=== PATIENT | male | born 1955 | race Caucasian/White ===

== ENCOUNTER 2018-03-27 14:58 | Emergency (ER) | payer OTHER ==
--- OUTSIDE RECORDS SUMMARY | 2018-03-27 15:03 | XMS REPORT | Clinical Summary ---
:1955 Author Organization [facility] Address [address] [place] [address] Care Team Providers Name Role Phone Taylor Tyler MD Primary Care Provider Allergies Active Allergy Reactions Severity Noted Date Comments Morphine Other (See Comments) 11/18/2015 confusion Current Medications Prescription Sig. Disp. Refills Start End Status Date Date calcitriol Take 0.25 capsules 10/20/19 Active (ROCALTROL) 0.5 MCG by mouth daily. 16 capsule pravastatin TAKE ONE TABLET BY 1 03/25/20 Active (PRAVACHOL) 10 MG MOUTH EVERY OTHER 16 tablet DAY AT BEDTIME cetirizine (ZyrTEC) Take 10 mg by Active 10 MG tablet mouth daily. FOLIC ACID/VIT B Take by mouth. Active COMPLEX AND C (DIALYVITE ORAL) VIT A/VIT C/VIT Take by mouth. Active E/ZINC/COPPER (ICAPS AREDS ORAL) allopurinol Take 1 tablet (100 90 tablet 1 09/08/20 Active (ZYLOPRIM) 100 MG mg total) by mouth 17 tablet once daily. famotidine (PEPCID) Take 1 tablet (20 90 tablet 1 09/08/20 Active 20 MG mg total) by mouth 17 tabletIndications: 2 (two) times a Gastroesophageal day. reflux disease without esophagitis gabapentin Take 2 capsules 360 capsule 1 09/08/20 Active (NEURONTIN) 100 mg (200 mg total) by 17 capsule mouth 2 (two) times a day. escitalopram TAKE 1 TABLET BY 90 tablet 1 10/04/19 Active (LEXAPRO) 10 MG MOUTH DAILY 18 tablet sevelamer (RENVELA) Take 800 mg by Active 800 mg tablet mouth daily. 5 tabs with meals 3 tabs with snacks aspirin 325 MG Take 325 mg by Active tablet mouth daily. clonIDINE (CATAPRES) Take 1 tablet (0.1 01/06/20 Active 0.1 MG tablet mg total) by mouth 18 3 (three) times a day as needed for high blood pressure (PRN SBP >170). SBP greater than 170 donepezil (ARICEPT) Take 1 tablet (10 90 tablet 3 01/16/20 Active 10 MG tablet mg total) by mouth 18 nightly. HYDROcodone-acetamin Take 1 tablet by 60 tablet 0 03/05/20 Active ophen (NORCO) 10-325 mouth every 6 18 018 mg per (six) hours as tabletIndications: needed for Primary moderate pain for osteoarthritis up to 30 days. Max involving multiple Daily Amount: 4 joints tablets levothyroxine TAKE 1 TABLET (75 90 tablet 1 03/09/20 Active (SYNTHROID, LEVOXYL) MCG TOTAL) BY 18 75 mcg MOUTH ONCE DAILY. tabletIndications: Acquired hypothyroidism NIFEdipine XL Take 1 tablet (90 30 tablet 0 03/22/20 Active (PROCARDIA XL) 90 MG mg total) by mouth 18 018 24 hr tablet daily for 30 days. RENVELA 800 mg Take 8 tablets by 08/31/20 Discontinued tablet mouth 2 (two) 15 017 times a day. aspirin 81 mg Chew 81 mg. Discontinued chewable tablet 018 clopidogrel (PLAVIX) Take 75 mg by 0 03/25/20 Discontinued 75 mg tablet mouth once daily. 16 017 VITAMIN D2 50,000 04/21/20 Discontinued unit capsule 16 017 clonIDINE (CATAPRES) nightly as needed 05/30/20 Discontinued 0.1 MG tablet for high blood 16 018 pressure. SBP greater than 170 SENSIPAR 30 mg daily. 07/08/20 Discontinued tablet 16 017 NOVOLOG FLEXPEN 100 INJECT 25 UNITS 4 09/30/20 04/20/2 Discontinued unit/mL insulin pen SUBCUTANEOUSLY 16 018 WITH EVERY MEAL midodrine START TAKING 2 07/24/20 Discontinued (PROAMATINE) 5 MG ONE-HALF TABLET BY 16 017 tablet MOUTH EVERY FOUR HOURS, AT 0900, 1300, 1700. insulin DETEMIR Inject 14 Units 5 pen 0 08/23/20 Discontinued (LEVEMIR FLEXTOUCH) under the skin 2 16 017 100 unit/mL (3 mL) (two) times a day. insulin pen docusate sodium Take 100 mg by Discontinued (COLACE) 100 MG mouth 2 (two) 017 capsule times a day as needed. famotidine (PEPCID) TAKE 1 TABLET BY 90 tablet 1 10/03/19 Discontinued 20 MG MOUTH TWICE A DAY 17 017 tabletIndications: Gastroesophageal reflux disease without esophagitis gabapentin TAKE 2 CAPSULES BY 360 capsule 1 10/06/19 Discontinued (NEURONTIN) 100 mg MOUTH TWICE A DAY 17 017 capsule escitalopram TAKE 1 TABLET BY 90 tablet 1 10/17/19 Discontinued (LEXAPRO) 10 MG MOUTH DAILY 17 017 tablet allopurinol TAKE 1 TABLET BY 90 tablet 1 10/17/19 Discontinued (ZYLOPRIM) 100 MG MOUTH EVERY DAY 17 017 tablet NIFEdipine XL Take 60 mg by Discontinued (PROCARDIA XL) 60 MG mouth. 017 24 hr tablet levothyroxine TAKE 1 TABLET BY 90 tablet 1 01/03/20 Discontinued (SYNTHROID, LEVOXYL) MOUTH DAILY 17 017 75 mcg tabletIndications: Hypothyroidism lactulose TAKE 60 ML BY 5 01/14/20 Discontinued (CHRONULAC) 10 MOUTH TWICE A DAY 17 018 gram/15 mL solution NEEDED FOR CONSTIPATION HYDROcodone-acetamin Take 1 tablet by 60 tablet 0 02/28/20 ophen (NORCO) 10-325 mouth every 6 17 017 mg per (six) hours as tabletIndications: needed for Primary moderate pain for osteoarthritis up to 30 days. Max involving multiple Daily Amount: 4 joints tablets famotidine (PEPCID) TAKE 1 TABLET BY 90 tablet 1 03/29/20 Discontinued 20 MG MOUTH TWICE A DAY 17 017 tabletIndications: Gastroesophageal reflux disease without esophagitis gabapentin TAKE 2 CAPSULES BY 360 capsule 1 04/03/20 Discontinued (NEURONTIN) 100 mg MOUTH TWICE A DAY 17 017 capsule insulin degludec Inject 83 Units Discontinued (TRESIBA FLEXTOUCH under the skin 2 018 U-100) 100 unit/mL (two) times a day. (3 mL) insulin pen HYDROcodone-acetamin Take 1 tablet by Discontinued ophen (NORCO) 10-325 mouth every 6 017 mg per tablet (six) hours as needed for moderate pain. escitalopram TAKE 1 TABLET BY 90 tablet 1 04/13/20 Discontinued (LEXAPRO) 10 MG MOUTH DAILY 17 018 tablet TRESIBA FLEXTOUCH INJECT 80 UNITS 3 04/28/20 Discontinued U-200 200 unit/mL (3 SUB-Q TWICE A DAY 17 017 mL) insulin pen HYDROcodone-acetamin Take 1 tablet by 60 tablet 0 06/20/20 ophen (NORCO) 10-325 mouth every 6 17 017 mg per tablet (six) hours as needed for moderate pain for up to 30 days. Max Daily Amount: 4 tablets levothyroxine TAKE 1 TABLET BY 90 tablet 0 07/03/20 Discontinued (SYNTHROID, LEVOXYL) MOUTH DAILY 17 017 75 mcg tabletIndications: Hypothyroidism famotidine (PEPCID) TAKE 1 TABLET BY 90 tablet 0 07/04/20 Discontinued 20 MG MOUTH TWICE A DAY 17 017 tabletIndications: Gastroesophageal reflux disease without esophagitis donepezil (ARICEPT) Take 1 tablet (5 30 tablet 11 07/17/20 Discontinued 5 MG tablet mg total) by mouth 17 017 nightly. amLODIPine (NORVASC) Take 1 tablet (5 30 tablet 0 08/03/20 5 mg tablet mg total) by mouth 17 017 daily for 30 days. sevelamer (RENVELA) Take 5 tablets 450 tablet 0 08/03/20 800 mg tablet (4,000 mg total) 17 017 by mouth 3 (three) times a day with meals for 30 days. famotidine (PEPCID) TAKE 1 TABLET BY 90 tablet 0 08/04/20 Discontinued 20 MG MOUTH TWICE A DAY 17 017 tabletIndications: Gastroesophageal reflux disease without esophagitis famotidine (PEPCID) TAKE 1 TABLET BY 90 tablet 0 09/04/20 Discontinued 20 MG MOUTH TWICE A DAY 17 017 tabletIndications: Gastroesophageal reflux disease without esophagitis donepezil (ARICEPT) Take 1 tablet (5 90 tablet 1 09/08/20 Discontinued 5 MG tablet mg total) by mouth 17 018 nightly. levothyroxine Take 1 tablet (75 90 tablet 1 09/08/20 Discontinued (SYNTHROID, LEVOXYL) mcg total) by 17 018 75 mcg mouth once daily. tabletIndications: Acquired hypothyroidism famotidine (PEPCID) TAKE 1 TABLET BY 90 tablet 0 10/04/19 Discontinued 20 MG MOUTH TWICE A DAY 18 018 tabletIndications: Gastroesophageal reflux disease without esophagitis famotidine (PEPCID) TAKE 1 TABLET BY 90 tablet 0 11/06/19 Discontinued 20 MG MOUTH TWICE A DAY 18 018 tabletIndications: Gastroesophageal reflux disease without esophagitis allopurinol TAKE 1 TABLET BY 90 tablet 0 12/05/19 Discontinued (ZYLOPRIM) 100 MG MOUTH EVERY DAY 018 tablet HYDROcodone-acetamin Take 1 tablet by 60 tablet 0 12/15/19 Discontinued ophen (NORCO) 10-325 mouth every 6 18 018 mg per (six) hours as tabletIndications: needed for Closed nondisplaced moderate pain for fracture of proximal up to 30 days. Max phalanx of right Daily Amount: 4 little finger, tablets initial encounter insulin ASPART As Prior 4 01/06/20 Discontinued (NovoLOG Flexpen 18 018 U-100 Insulin) 100 unit/mL insulin pen DULoxetine Take 1 capsule (30 30 capsule 11 01/16/20 Discontinued (CYMBALTA) 30 MG mg total) by mouth 18 018 capsule daily. predniSONE Take 1 tablet (20 10 tablet 0 03/05/20 (DELTASONE) 20 mg mg total) by mouth 18 018 tabletIndications: 2 (two) times a Primary day for 5 days. osteoarthritis involving multiple joints allopurinol TAKE 1 TABLET BY 90 tablet 0 03/09/20 Discontinued (ZYLOPRIM) 100 MG MOUTH EVERY DAY 18 018 tablet Hospital, Clinic, or Other Ordered Dose Route Frequency Start Date End Date Status Facility Administered Medication triamcinolone acetonide 40 mg IM once 03/05/2018 03/05/2018 Ended (KENALOG-40) injection 40 mgIndications: Primary osteoarthritis involving multiple joints Active Problems Problem Noted Date Hyperkalemia 03/20/2018 CAD (coronary artery disease), [place] coronary artery 01/04/2018 ESRD (end stage renal disease) on dialysis 09/14/2017 Generalized abdominal pain 07/25/2017 Peritoneal dialysis-associated peritonitis, initial encounter 07/24/2017 Overview: Added automatically from request for surgery [id number] Recurrent falls 05/11/2017 Myoclonus 11/11/2016 Orthostatic hypotension- Rx midodrine 09/23/2016 Mild cognitive impairment 09/23/2016 Cervical myelopathy 09/23/2016 Neuropathy 04/26/2016 Anxiety 04/22/2016 Benign hypertensive heart disease without congestive heart failure 04/22/2016 Cerebrovascular accident 04/22/2016 Chronic uremia 04/22/2016 Gastroesophageal reflux disease 04/22/2016 Gout 04/22/2016 Hip pain 04/22/2016 Hypothyroidism 04/22/2016 Osteoarthritis- uses one hydrocodone/ APAP daily, managed by PCP, visits 04/22 q3 mo Benign neoplasm of adrenal gland 01/15/2016 Corticosteroids adverse reaction 01/15/2016 Diabetes mellitus 01/15/2016 Disease of pericardium 01/15/2016 Goiter 01/15/2016 Malignant melanoma of upper extremity 09/02/2015 Encounters Date Type Specialty Care Team Description 03/27/2018 Documentation Transplant Israel, MRB packet 03/29/18 Sharon (MRB packet 03/29/18 scanned in media. ) 03/26/2018 Documentation Transplant Jannet Christian, mrb packet RN 03/22/2018 Documentation Transplant Marcial, Cardiology Clearance Nathalia - Heart Cath (Scanned Cardiology Clearance letter from Dr. Clayton dated 03/20/2018 related to heart cath performed with pt's home cuff matcher(Dr. Curiel) . Notified nurse coordinator & clinical mri assistant .) 03/20/2018 Patient Outreach Quality Nhi Tatum RN 03/19/2018 Emergency General Internal Elvira, Hyperkalemia (Primary Dx); - Medicine Bailey Hypertension, unspecified type 03/21/2018 DO Raquel Hernandez Shahid Q., MD 03/19/2018 Documentation Transplant Marcial, Kidney Transplant Nathalia Evaluation Update (Called pt's home, spoke with spouse, to give update of kidney txp eval presentation. Advised we are pending cardiology clearance from Dr. Clayton's office. Spk shimon Wise who will have doctor review results of heart cath performed w Dr. Curiel (cuff matcher) and send letter of recommendation. Jannet nurse coordinator says if info rcvd by maria elena is clear, pt will be presented on March 22 if not rcvd the plan is to have presented the following Mar 29. Spouse is ok wih the plan. ) 03/16/2018 Documentation Transplant Marcial, Kidney Eval (Reviewed Nathalia chart, heart cath recommended by Dr. Clayton. Procedure performed 01/04/[address] Celestino Curiel. Called Dr. Clayton's office spoke with Billie who will follow up and send letter with recommendation) 03/16/2018 Documentation Transplant Marcial, Kidney Transplant Nathalia Evaluation Status Update (Rcvd call from Dr. Byers office (nephrology) inquiring the status of pt kidney evaluation. Explained that per previous note, pt will be presented within next couple of weeks. Nurse coordinator is out today, but will get an update on next bus/day. Per review of chart saw that patient's spouse had also called. Called spouse, explained coordinator was out today but offered to assist. Spouse was concerned that pt had not yet been presented.Told spouse update will given Mon. ) 03/16/2018 Telephone Transplant Misha Tabares, Waitlist Status MA Update 03/13/2018 Telephone Transplant Misha Tabares, Heart Cath Results MA 03/09/2018 Patient Outreach Nhi Savage RN 03/08/2018 Refill Family Medicine Taylor Tyler Acquired MD Vivienne hypothyroidism 03/05/2018 Office Visit Family Taylor Wang Primary osteoarthritis involving multiple joints (Primary Dx); MD Vivienne Closed nondisplaced fracture of proximal phalanx of right little finger, initial encounter 02/07/2018 Telephone Transplant Booker, MRB and travel GEOFF Ham restrictions 01/25/2018 Documentation Transplant Israel, cardio f/u (13:34pm Sharon robins/Billie in Dr. Clayton regarding status of clearance. She will call me back or fax over f/u note or clearance. ) 01/24/2018 Telephone Transplant Aaron, Status Update GEOFF Kevin 01/17/2018 Office Visit Family Medicine Taylor Tyler Neuropathy (Primary Dx); MD Vivienne Acquired hypothyroidism; Unspecified symptoms and signs involving cognitive functions and awareness 01/15/2018 Office Visit Neurology Tomas Hernandez Cervical myelopathy ( Primary Dx); MD Pratik Myoclonus; Idiopathic peripheral neuropathy; Orthostatic hypotension- Rx midodrine; Cerebrovascular accident (CVA), unspecified mechanism 01/04/2018 Hospital Encounter General Internal Moisés, Yolanda adenosine - Medicine Celestino Denise MD sestamibi study 01/05/2018 01/04/2018 Procedure Pass Procedural Cardiology 01/04/2018 Surgery Procedural Cardiology Moisés, Cv selective coronary Celestino Denise MD angiography [[id number] (CPT)] 01/02/2018 Documentation Transplant Israel, Cardio consult Sharon (Cardio consult 12/19/17 scanned in media.); Urology clearance (Urology clearance 12/19/17 scanned in media. ) 12/26/2017 Office Visit Sports Lee Stewart Closed nondisplaced MD Gene fracture of proximal phalanx of right little finger with routine healing, subsequent encounter (Primary Dx) 12/19/2017 Hospital Encounter Radiology Omayra Crystal ESRD (end stage renal MD Caitlin disease) 12/19/2017 Hospital Encounter Transplant Omayra Crystal ESRD (end stage renal [place], disease) 12/16/2017 Lab Lab Omayra Crystal ESRD (end stage renal [place], disease) (Primary Dx) 12/14/2017 Office Visit Sports Lee Stewart Closed nondisplaced MD Gene fracture of proximal phalanx of right little finger, initial encounter (Primary Dx) 12/14/2017 Lab Lab Omayra Crystal ESRD (end stage renal [place], disease) 12/14/2017 Telephone Family Medicine Chelo Rodriguez MA 12/13/2017 Lab Lab Omayra Crystal ESRD (end stage renal [place], disease) 12/11/2017 Documentation Transplant Israel, Nephrology consult Sharon (Nephrology consult 11/28/17 scanned in media. ) 12/03/2017 Refill Family Medicine Taylor Tyler MD 11/28/2017 Documentation Transplant Israel, Nephrology consult Sharon (10:24am Sp w/Stefania in Dr. Stone office requesting H&P. Stefania stated she will have to call pt to come in to see Dr. Stone. Stefania will call me when pt is scheduled. ) 11/27/2017 Documentation Transplant Rodriguez, kidney eval day 2 Terri (emailed and mailed pt his itinerary w/ 3 stool cards and instructions.) 11/24/2017 Documentation Transplant Israel, left msg re: day 2 Sharon appt (14:46pm left msg for pt stating he is scheduled on December 19, 2017 for all his appts & left my direct number to call back and confirm appts. ) 11/10/2017 Documentation Transplant Israel, Kidney eval day 2/ Sharon status (14:33 pm Sp w/pt Stefania, pt avail on / & requesting to schedule after 11/27/17 so she can come w/pt to his appts. Do not schedule on November 272017. Told I will schedule sometime next week & gave my direct number to call re: apps) 11/08/2017 Orders Only Transplant Hewerdine, ESRD (end stage renal Mack, BEAR disease) (Primary Dx) 11/05/2017 Refill Family Medicine Taylor Tyler MD reflux disease without esophagitis 11/02/2017 Telephone Transplant Misha Tabares, Next Step in [place] Transplant Process 10/13/2017 Documentation Transplant Mary Glover, LAW OFFICE ASSISTANT 10/06/2017 Telephone Family Taylor Wang MD 10/04/2017 Refill Family Taylor Wang MD reflux disease without esophagitis 10/03/2017 Refill Family Taylor Wang MD 09/26/2017 Hospital Encounter Radiology Garcia, ESRD (end stage renal Raghu Noonan, disease) 09/26/2017 Hospital Encounter Radiology Radha, ESRD (end stage renal Raghu Noonan, disease) 09/26/2017 Hospital Encounter Transplant Garcia, ESRD (end stage renal fátima Villa) 09/26/2017 Hospital Encounter Transplant Raghu Garcia MD 09/26/2017 Hospital Encounter Transplant Omayra Crystal MD Breaux, Denise 09/14/2017 Hospital Encounter Transplant Omayra Crystal ESRD (end stage renal MD Caitlin disease) 09/14/2017 Hospital Encounter Transplant Asked, No Pcp Raghu Garcia MD 09/14/2017 Hospital Encounter Transplant Asked, No Pcp ESRD (end stage renal disease) (Primary Dx); Omayra Crystal Type 2 diabetes mellitus with chronic kidney disease on chronic dialysis, with long-term current use of insulin; MD Caitlin ESRD (end stage renal disease) on dialysis 09/14/2017 Telephone Transplant Zia, Pre-kidney full eval Nhi 09/14/2017 Documentation Transplant Marcial, Consent Forms Nathalia (Scanned Consent For Kidney Transplant Evaluation, Pre Txp Education & MELLISSA forms on Media. 09-14-2017 ) 09/08/2017 Office Visit Family Medicine Taylor Tyler Type 2 diabetes mellitus with hyperglycemia, with long-term current use of insulin (Primary Dx); MD Vivienne Acquired hypothyroidism; Gastroesophageal reflux disease without esophagitis; Primary osteoarthritis involving multiple joints 09/04/2017 Refill Family Medicine Taylor Tyler MD reflux disease without esophagitis 08/31/2017 Documentation Transplant Beronica Virgen 08/30/2017 Documentation Transplant Beronica Virgen 08/18/2017 Telephone Transplant Robbie, Referral - Kidney Txp Jina Berman (Rereferral) GEOFF 08/15/2017 Telephone Family Medicine Chelo Rodriguez MA 08/07/2017 Telephone Family Medicine Chelo Rodriguez MA 08/07/2017 Refill Quality Taylor Tyler MD 08/04/2017 Refill Family Taylor Wang MD reflux disease without esophagitis 07/30/2017 Anesthesia Event General Surgery Salma Sheth CRNA 07/30/2017 Procedure Pass General Surgery 07/30/2017 Procedure Pass General Surgery 07/30/2017 Surgery General Surgery Opperruby, Removal, Catheter, Jaskaran Denise MD Dialysis, Peritoneal 07/25/2017 Hospital Encounter General Internal Krueger, Generalized abdominal pain (Primary Dx); - Medicine MD Jeremy Peritoneal dialysis-associated peritonitis, initial encounter 08/03/2017 Lulu Cutler MD Joglekar, Samir P., MD 07/17/2017 Office Visit Neurology Tomas Hernandez Mild cognitive impairment ( Primary Dx); MD Pratik Myoclonus; Cervical myelopathy; Neuropathy; Orthostatic hypotension- Rx midodrine; Cerebrovascular accident (CVA), unspecified mechanism 07/05/2017 Orders Only Neurology Gwyn, Memory loss GEOFF Guidry 07/04/2017 Refill Family Medicine Taylor Tyler MD reflux disease without esophagitis 07/02/2017 Refill Family Medicine Taylor Tyler Hypothyroidism MD Vivienne 06/19/2017 Office Visit Family Medicine Taylor Tyler Primary osteoarthritis involving multiple joints (Primary Dx); MD Vivienne Recurrent falls; Bilateral hearing loss, unspecified hearing loss type 05/26/2017 Hospital Encounter Gastroenterology Murray, Constipation, Arvind Ryan MD unspecified constipation type 05/26/2017 Procedure Pass Gastroenterology 05/26/2017 Surgery Gastroenterology Murray, COLONOSCOPY Arvind Ryan MD 05/24/2017 Anesthesia Event Gastroenterology Pretty, Danay, ADMINISTRATIVE ASSISTANT OFFICE MANAGER 05/11/2017 Office Visit Neurology Tomas Hernandez Cervical myelopathy ( Primary Dx); MD Pratik Myoclonus; Neuropathy; Memory loss; Recurrent falls 04/13/2017 Refill Family Taylor Wang MD 04/12/2017 Orders Only Family Medicine Gunjan, Screening for colon GEOFF [place] cancer 04/11/2017 Hospital Encounter Gastroenterology Arvind Gao MD 04/11/2017 Procedure Pass Gastroenterology 04/11/2017 Surgery Gastroenterjalil Gao COLONOSCOPY Arvind Ryan MD 04/10/2017 Anesthesia Event Gastroenterology Pretty, Danay, ADMINISTRATIVE ASSISTANT OFFICE MANAGER 03/30/2017 Refill Family Taylor Wang MD 03/29/2017 Refill Family Medicine Taylor Tyler MD reflux disease without esophagitis after 03/26/2017 Family History Medical History Relation Name Comments Melanoma Daughter Cancer Father W Isha Willard Diabetes Father W Isha Willard Heart disease Father Shimon Willard Heart Valve replacement and CHF Hypertension Father Shimon Willard Alzheimer's disease Mother Bernie Willard Arthritis Mother Bernie Willard Hypertension Mother Bernie Willard Diabetes Sister Melanoma Sister Melanoma Sister Cancer Sister Lourdes Latif Relation Name Status Comments Daughter Father Shimon Willard Mother Bernie Willard Sister Sister Sister Lourdes Latif Social History Tobacco Use Types Packs/Day Years Used Date Former Smoker Cigarettes 0.25 10 Quit: 1994 Smokeless Tobacco: Never Used Alcohol Use Drinks/Week oz/Week Comments No Sex Assigned at Date Recorded Not on file Last Filed Vital Signs Vital Sign Reading Time Taken Blood Pressure 160/71 03/21/2018 2:20 PM CDT Pulse 63 03/21/2018 2:20 PM CDT Temperature 36.7 C (98 F) 03/21/2018 12:13 PM CDT Respiratory Rate 11 03/21/2018 12:13 PM CDT Oxygen Saturation 97% 03/21/2018 2:20 PM CDT Inhaled Oxygen Concentration - - Weight 127 kg (280 lb 11.2 oz) 03/21/2018 6:05 AM CDT Height 182.9 cm (6') 03/05/2018 11:16 AM CDT Body Mass Index 38.07 03/21/2018 6:05 AM CDT Plan of Treatment Date Type Specialty Care Team Description 07/16/2018 Office [place] [address] [facility] [address] [place], [place] [id number] Health Maintenance Due Date Last Done Comments DIABETIC FOOT EXAM 1965 DIABETIC RETINAL EYE EXAM 1965 SHINGRIX VACCINE (#1) 2005 ZOSTER VACCINE 2015 INFLUENZA VACCINE 04/18/2018 COLON CANCER SCREENING 12/17/2027 12/16/2017, 12/14/2017, 12/13/2017 Implants Implanted Type Area Aircraft Systems Repairer Device Expiration Model / Identifier Date Serial / Lot Catheter Dialysis Glidepath [id number] Symmetric Tip - [id number] Implantable N/A: BARD PERIPHERAL [id number] / Implanted: 07/31/2017 (Quantity not on file) Infusion Ports N/A VASCULAR / or Accessories Procedures Procedure Name Priority Date/Time Associated Comments Diagnosis HEMODIALYSIS Routine 03/21/2018 7:14 AM CDT HEMODIALYSIS Routine 03/20/2018 7:58 AM CDT HEPATITIS B SURFACE Routine 03/20/2018 7:30 Results for this ANTIBODY AM CDT procedure are in the results section. HEPATITIS B SURFACE AB, Routine 03/20/2018 7:30 Results for this QUANTITATIVE AM CDT procedure are in the results section. HEPATITIS B SURFACE Routine 03/20/2018 7:30 Results for this ANTIGEN AM CDT procedure are in the results section. ESTIMATED GFR STAT 03/20/2018 4:32 Results for this AM CDT procedure are in the results section. BASIC METABOLIC PANEL STAT 03/20/2018 4:32 Results for this AM CDT procedure are in the results section. TROPONIN Timed 03/20/2018 3:37 Results for this AM CDT procedure are in the results section. POC GLUCOSE Routine 03/20/2018 2:44 Results for this AM CDT procedure are in the results section. ESTIMATED GFR STAT 03/19/2018 11:30 Results for this PM CDT procedure are in the results section. B NATRIURETIC PEPTIDE STAT 03/19/2018 11:30 Results for this PM CDT procedure are in the results section. TROPONIN STAT 03/19/2018 11:30 Results for this PM CDT procedure are in the results section. COMPREHENSIVE METABOLIC STAT 03/19/2018 11:30 Results for this PANEL PM CDT procedure are in the results section. PARTIAL THROMBOPLASTIN STAT 03/19/2018 11:30 Results for this TIME (PTT) PM CDT procedure are in the results section. PROTHROMBIN TIME WITH STAT 03/19/2018 11:30 Results for this INR PM CDT procedure are in the results section. HC COMPLETE BLD COUNT STAT 03/19/2018 11:30 Results for this W/AUTO DIFF PM CDT procedure are in the results section. XR CHEST 1 VW PORTABLE STAT 03/19/2018 11:09 Results for this PM CDT procedure are in the results section. ECG ED PRELIMINARY Routine 03/19/2018 10:41 Results for this INTERPRETATION PM CDT procedure are in the results section. [place] [facility], E/M Routine 03/19/2018 10:41 Results for this 30-74 MINUTES PM CDT procedure are in the results section. ECG 12-LEAD STAT 03/19/2018 10:23 Results for this PM CDT procedure are in the results section. POC GLUCOSE Routine 01/05/2018 12:29 Results for this PM CDT procedure are in the results section. HEPATITIS B SURFACE Routine 01/05/2018 7:20 Results for this ANTIGEN AM CDT procedure are in the results section. ESTIMATED GFR Routine 01/05/2018 4:58 Results for this AM CDT procedure are in the results section. HEMOGLOBIN A1C Routine 01/05/2018 4:58 Results for this AM CDT procedure are in the results section. COMPREHENSIVE METABOLIC Routine 01/05/2018 4:58 Results for this PANEL AM CDT procedure are in the results section. LIPID PANEL Routine 01/05/2018 4:58 Results for this AM CDT procedure are in the results section. HC COMPLETE BLD COUNT Routine 01/05/2018 4:58 Results for this W/AUTO DIFF AM CDT procedure are in the results section. POC GLUCOSE Routine 01/04/2018 9:15 Results for this PM CDT procedure are in the results section. HEMODIALYSIS Routine 01/04/2018 6:48 PM CDT POC GLUCOSE Routine 01/04/2018 5:33 Results for this PM CDT procedure are in the results section. CV SELECTIVE CORONARY Routine 01/04/2018 3:44 Abnormal adenosine Results for this ANGIOGRAPHY PM CDT sestamibi study procedure are in the results section. ECG 12-LEAD Routine 01/04/2018 3:20 Results for this PM CDT procedure are in the results section. ESTIMATED GFR STAT 01/04/2018 1:18 Results for this PM CDT procedure are in the results section. PARTIAL THROMBOPLASTIN STAT 01/04/2018 1:18 Results for this TIME (PTT) PM CDT procedure are in the results section. PROTHROMBIN TIME WITH STAT 01/04/2018 1:18 Results for this INR PM CDT procedure are in the results section. BASIC METABOLIC PANEL STAT 01/04/2018 1:18 Results for this PM CDT procedure are in the results section. HC COMPLETE BLD COUNT STAT 01/04/2018 1:18 Results for this W/AUTO DIFF PM CDT procedure are in the results section. XR FINGER 2+ VW RIGHT Routine 12/26/2017 4:21 Closed nondisplaced Results for this PM CDT fracture of procedure are in proximal phalanx of the results right little finger section. with routine healing, subsequent encounter CT ANGIOGRAM ABDOMEN Routine 12/19/2017 8:31 ESRD (end stage Results for this PELVIS W AND OR WO AM CDT renal disease) procedure are in CONTRAST the results section. C1Q CLASS 1 & 2 ANTIBODY Routine 12/19/2017 6:50 Results for this AM CDT procedure are in the results section. HLA AUTOLOGOUS Routine 12/19/2017 6:50 Results for this CROSSMATCH, AHG AM CDT procedure are in the results section. SINGLE ANTIGEN BEADS Routine 12/19/2017 6:50 Results for this AM CDT procedure are in the results section. LOW RESOLUTION FULL Routine 12/19/2017 6:50 Results for this TYPING BY SSO AM CDT procedure are in the results section. ESTIMATED GFR Routine 12/19/2017 6:50 Results for this AM CDT procedure are in the results section. ABORH - TRANSPLANT Routine 12/19/2017 6:50 ESRD (end stage Results for this AM CDT renal disease) procedure are in the results section. PARATHYROID HORMONE Routine 12/19/2017 6:50 ESRD (end stage Results for this AM CDT renal disease) procedure are in the results section. HSV TYPE 1/2 COMBINED Routine 12/19/2017 6:50 ESRD (end stage Results for this AB, IGM AM CDT renal disease) procedure are in the results section. HSV 1 & 2 GLYCOPROTEIN G Routine 12/19/2017 6:50 ESRD (end stage Results for this AB, IGG AM CDT renal disease) procedure are in the results section. HERPES SIMPLEX VIRUS BY Routine 12/19/2017 6:50 ESRD (end stage Results for this PCR AM CDT renal disease) procedure are in the results section. AINSLEY-BANUELOS VIRUS Routine 12/19/2017 6:50 ESRD (end stage Results for this ANTIBODY TEST AM CDT renal disease) procedure are in the results section. CYTOMEGALOVIRUS AB, IGM Routine 12/19/2017 6:50 ESRD (end stage Results for this AM CDT renal disease) procedure are in the results section. CYTOMEGALOVIRUS AB, IGG Routine 12/19/2017 6:50 ESRD (end stage Results for this AM CDT renal disease) procedure are in the results section. HEMOGLOBIN A1C Routine 12/19/2017 6:50 ESRD (end stage Results for this AM CDT renal disease) procedure are in the results section. LDH Routine 12/19/2017 6:50 ESRD (end stage Results for this AM CDT renal disease) procedure are in the results section. PHOSPHORUS LEVEL Routine 12/19/2017 6:50 ESRD (end stage Results for this AM CDT renal disease) procedure are in the results section. CREATININE LEVEL Routine 12/19/2017 6:50 ESRD (end stage Results for this AM CDT renal disease) procedure are in the results section. FASTING GLUCOSE LEVEL Routine 12/19/2017 6:50 ESRD (end stage Results for this AM CDT renal disease) procedure are in the results section. TRIGLYCERIDES Routine 12/19/2017 6:50 ESRD (end stage Results for this AM CDT renal disease) procedure are in the results section. CHOLESTEROL Routine 12/19/2017 6:50 ESRD (end stage Results for this AM CDT renal disease) procedure are in the results section. OCCULT BLOOD, STOOL Routine 12/16/2017 12:00 ESRD (end stage Results for this PM CDT renal disease) procedure are in the results section. XR HAND 3+ VW RIGHT Routine 12/14/2017 2:42 Finger pain, right Results for this PM CDT procedure are in the results section. OCCULT BLOOD, STOOL Routine 12/14/2017 10:00 ESRD (end stage Results for this AM CDT renal disease) procedure are in the results section. OCCULT BLOOD, STOOL Routine 12/13/2017 10:00 ESRD (end stage Results for this AM CDT renal disease) procedure are in the results section. US RENAL Routine 09/26/2017 12:23 ESRD (end stage Results for this PM [employer] renal disease) procedure are in the results section. XR CHEST 2 VW Routine 09/26/2017 11:44 ESRD (end stage Results for this AM [employer] renal disease) procedure are in the results section. ECG 12-LEAD Routine 09/26/2017 9:22 ESRD (end stage Results for this AM [employer] renal disease) procedure are in the results section. OPIATES, S/P, QUANT Routine 09/14/2017 12:10 Results for this PM [employer] procedure are in the results section. A1 ANTIGEN PATIENT Routine 09/14/2017 12:10 Results for this TYPING PM [employer] procedure are in the results section. ESTIMATED GFR Routine 09/14/2017 12:10 Results for this PM [employer] procedure are in the results section. PROSTATE SPECIFIC Routine 09/14/2017 12:10 ESRD (end stage Results for this ANTIGEN PM [employer] renal disease) procedure are in the results section. SERUM ELECTROPHORESIS Routine 09/14/2017 12:10 ESRD (end stage Results for this PM [employer] renal disease) procedure are in the results section. C-PEPTIDE Routine 09/14/2017 12:10 ESRD (end stage Results for this PM [employer] renal disease) procedure are in the results section. TB T-SPOT Routine 09/14/2017 12:10 ESRD (end stage Results for this PM [employer] renal disease) procedure are in the results section. NICOTINE AND Routine 09/14/2017 12:10 ESRD (end stage Results for this METABOLITES, SERUM PM [employer] renal disease) procedure are in the results section. DRUG SOLORZANO 9, SER/CHRISTINA, Routine 09/14/2017 12:10 ESRD (end stage Results for this SCRN W/RFLX TO CONF PM [employer] renal disease) procedure are in the results section. ABORH - TRANSPLANT Routine 09/14/2017 12:10 ESRD (end stage Results for this PM [employer] renal disease) procedure are in the results section. PARTIAL THROMBOPLASTIN Routine 09/14/2017 12:10 ESRD (end stage Results for this TIME (PTT) PM [employer] renal disease) procedure are in the results section. PROTHROMBIN TIME WITH Routine 09/14/2017 12:10 ESRD (end stage Results for this INR PM [employer] renal disease) procedure are in the results section. HC COMPLETE BLD COUNT Routine 09/14/2017 12:10 ESRD (end stage Results for this W/AUTO DIFF PM [employer] renal disease) procedure are in the results section. SYPHILIS TREPONEMAL IGG Routine 09/14/2017 12:10 ESRD (end stage Results for this PM [employer] renal disease) procedure are in the results section. HEPATITIS C ANTIBODY Routine 09/14/2017 12:10 ESRD (end stage Results for this PM [employer] renal disease) procedure are in the results section. HEPATITIS B SURFACE AB, Routine 09/14/2017 12:10 ESRD (end stage Results for this QUANTITATIVE PM [employer] renal disease) procedure are in the results section. HEPATITIS B SURFACE Routine 09/14/2017 12:10 ESRD (end stage Results for this ANTIGEN PM [employer] renal disease) procedure are in the results section. HEPATITIS B SURFACE Routine 09/14/2017 12:10 ESRD (end stage Results for this ANTIBODY PM [employer] renal disease) procedure are in the results section. HEPATITIS B CORE Routine 09/14/2017 12:10 ESRD (end stage Results for this ANTIBODY TOTAL PM [employer] renal disease) procedure are in the results section. HEPATITIS A ANTIBODY Routine 09/14/2017 12:10 ESRD (end stage Results for this TOTAL PM [employer] renal disease) procedure are in the results section. HIV 1, 2 ANTIBODY Routine 09/14/2017 12:10 ESRD (end stage Results for this PM [employer] renal disease) procedure are in the results section. COMPREHENSIVE METABOLIC Routine 09/14/2017 12:10 ESRD (end stage Results for this PANEL PM [employer] renal disease) procedure are in the results section. POC GLUCOSE Routine 08/03/2017 7:33 Results for this AM [employer] procedure are in the results section. POC GLUCOSE Routine 08/02/2017 9:14 Results for this PM [employer] procedure are in the results section. POC GLUCOSE Routine 08/02/2017 10:26 Results for this AM [employer] procedure are in the results section. HEMODIALYSIS Routine 08/02/2017 7:17 AM [employer] POC GLUCOSE Routine 08/01/2017 8:45 Results for this PM [employer] procedure are in the results section. POC GLUCOSE Routine 08/01/2017 5:32 Results for this PM [employer] procedure are in the results section. GENERAL Routine 08/01/2017 2:46 Peritoneal Results for this PM [employer] dialysis-associated procedure are in peritonitis, the results initial encounter section. POC GLUCOSE Routine 08/01/2017 12:04 Results for this PM [employer] procedure are in the results section. ESTIMATED GFR Routine 08/01/2017 5:30 Results for this AM [employer] procedure are in the results section. HC COMPLETE BLD COUNT Routine 08/01/2017 5:30 Results for this W/AUTO DIFF AM [employer] procedure are in the results section. COMPREHENSIVE METABOLIC Routine 08/01/2017 5:30 Results for this PANEL AM [employer] procedure are in the results section. POC GLUCOSE Routine 07/31/2017 9:32 Results for this PM [employer] procedure are in the results section. HC US GUIDED VASCULAR Routine 07/31/2017 1:41 Results for this ACCESS PM [employer] procedure are in the results section. HC CVL TUNNELED INS WO Routine 07/31/2017 1:41 Results for this PORT 5 YR OR > PM [employer] procedure are in the results section. POC GLUCOSE Routine 07/31/2017 11:28 Results for this AM [employer] procedure are in the results section. HEMODIALYSIS Routine 07/31/2017 10:47 AM [employer] POC GLUCOSE Routine 07/31/2017 7:46 Results for this AM [employer] procedure are in the results section. ESTIMATED GFR Routine 07/31/2017 4:35 Results for this AM [employer] procedure are in the results section. COMPREHENSIVE METABOLIC Routine 07/31/2017 4:35 Results for this PANEL AM [employer] procedure are in the results section. HC COMPLETE BLD COUNT Routine 07/31/2017 4:35 Results for this W/AUTO DIFF AM [employer] procedure are in the results section. POC GLUCOSE Routine 07/30/2017 9:19 Results for this PM [employer] procedure are in the results section. POC GLUCOSE Routine 07/30/2017 3:53 Results for this PM [employer] procedure are in the results section. POC GLUCOSE Routine 07/30/2017 12:55 Results for this PM [employer] procedure are in the results section. POC GLUCOSE Routine 07/30/2017 10:56 Results for this AM [employer] procedure are in the results section. POC GLUCOSE Routine 07/30/2017 8:44 Results for this AM [employer] procedure are in the results section. XR CHEST 1 VW PORTABLE Routine 07/30/2017 7:47 Results for this AM [employer] procedure are in the results section. POC GLUCOSE Routine 07/30/2017 7:33 Results for this AM [employer] procedure are in the results section. ESTIMATED GFR Routine 07/30/2017 5:30 Results for this AM [employer] procedure are in the results section. HEPATITIS B CORE Routine 07/30/2017 5:30 Results for this ANTIBODY TOTAL AM [employer] procedure are in the results section. HEPATITIS B SURFACE Routine 07/30/2017 5:30 Results for this ANTIBODY AM [employer] procedure are in the results section. HEPATITIS B SURFACE Routine 07/30/2017 5:30 Results for this ANTIGEN AM [employer] procedure are in the results section. COMPREHENSIVE METABOLIC Routine 07/30/2017 5:30 Results for this PANEL AM [employer] procedure are in the results section. CBC WITH PLATELET AND Routine 07/30/2017 5:30 Results for this DIFFERENTIAL AM [employer] procedure are in the results section. TYPE AND SCREEN Routine 07/30/2017 5:30 Results for this AM [employer] procedure are in the results section. PROTHROMBIN TIME WITH Routine 07/30/2017 5:30 Results for this INR AM [employer] procedure are in the results section. ECG PRE/POST OP Routine 07/30/2017 2:37 AM [employer] POC GLUCOSE Routine 07/29/2017 9:07 Results for this PM [employer] procedure are in the results section. POC GLUCOSE Routine 07/29/2017 5:00 Results for this PM [employer] procedure are in the results section. POC GLUCOSE Routine 07/29/2017 12:45 Results for this PM [employer] procedure are in the results section. POC GLUCOSE Routine 07/29/2017 8:20 Results for this AM [employer] procedure are in the results section. ESTIMATED GFR Routine 07/29/2017 5:30 Results for this AM [employer] procedure are in the results section. COMPREHENSIVE METABOLIC Routine 07/29/2017 5:30 Results for this PANEL AM [employer] procedure are in the results section. HC COMPLETE BLD COUNT Routine 07/29/2017 5:30 Results for this W/AUTO DIFF AM [employer] procedure are in the results section. POC GLUCOSE Routine 07/28/2017 8:54 Results for this PM [employer] procedure are in the results section. POC GLUCOSE Routine 07/28/2017 4:00 Results for this PM [employer] procedure are in the results section. POC GLUCOSE Routine 07/28/2017 11:30 Results for this AM [employer] procedure are in the results section. POC GLUCOSE Routine 07/28/2017 7:45 Results for this AM [employer] procedure are in the results section. ESTIMATED GFR Routine 07/28/2017 6:00 Results for this AM [employer] procedure are in the results section. COMPREHENSIVE METABOLIC Routine 07/28/2017 6:00 Results for this PANEL AM [employer] procedure are in the results section. HC COMPLETE BLD COUNT Routine 07/28/2017 6:00 Results for this W/AUTO DIFF AM [employer] procedure are in the results section. POC GLUCOSE Routine 07/27/2017 9:13 Results for this PM [employer] procedure are in the results section. POC GLUCOSE Routine 07/27/2017 5:17 Results for this PM [employer] procedure are in the results section. POC GLUCOSE Routine 07/27/2017 12:36 Results for this PM [employer] procedure are in the results section. POC GLUCOSE Routine 07/27/2017 7:24 Results for this AM [employer] procedure are in the results section. ESTIMATED GFR Routine 07/27/2017 5:45 Results for this AM [employer] procedure are in the results section. COMPREHENSIVE METABOLIC Routine 07/27/2017 5:45 Results for this PANEL AM [employer] procedure are in the results section. HC COMPLETE BLD COUNT Routine 07/27/2017 5:45 Results for this W/AUTO DIFF AM [employer] procedure are in the results section. POC GLUCOSE Routine 07/26/2017 9:03 Results for this PM [employer] procedure are in the results section. POC GLUCOSE Routine 07/26/2017 4:06 Results for this PM [employer] procedure are in the results section. VANCOMYCIN LEVEL, RANDOM Routine 07/26/2017 1:25 Results for this PM [employer] procedure are in the results section. HEPATITIS B SURFACE AB, Routine 07/26/2017 1:25 Results for this QUANTITATIVE PM [employer] procedure are in the results section. HEPATITIS B SURFACE Routine 07/26/2017 1:25 Results for this ANTIBODY PM [employer] procedure are in the results section. HEPATITIS B SURFACE Routine 07/26/2017 1:25 Results for this ANTIGEN PM [employer] procedure are in the results section. POC GLUCOSE Routine 07/26/2017 11:45 Results for this AM [employer] procedure are in the results section. POC GLUCOSE Routine 07/26/2017 7:45 Results for this AM [employer] procedure are in the results section. ESTIMATED GFR Routine 07/26/2017 6:42 Results for this AM [employer] procedure are in the results section. LIPASE LEVEL Routine 07/26/2017 6:42 Results for this AM [employer] procedure are in the results section. COMPREHENSIVE METABOLIC Routine 07/26/2017 6:42 Results for this PANEL AM [employer] procedure are in the results section. HC COMPLETE BLD COUNT Routine 07/26/2017 6:42 Results for this W/AUTO DIFF AM [employer] procedure are in the results section. POC GLUCOSE Routine 07/26/2017 5:22 Results for this AM [employer] procedure are in the results section. BODY FLUID CONSULT Routine 07/25/2017 9:50 Results for this PM [employer] procedure are in the results section. CELL COUNT AND Routine 07/25/2017 9:50 Results for this DIFFERENTIAL, BODY FLUID PM [employer] procedure are in the results section. GRAM STAIN Routine 07/25/2017 9:50 Results for this PM [employer] procedure are in the results section. ANAEROBIC CULTURE Routine 07/25/2017 9:50 Results for this PM [employer] procedure are in the results section. AEROBIC CULTURE Routine 07/25/2017 9:50 Results for this PM [employer] procedure are in the results section. POC GLUCOSE Routine 07/25/2017 9:31 Results for this PM [employer] procedure are in the results section. POC GLUCOSE Routine 07/25/2017 4:53 Results for this PM [employer] procedure are in the results section. POC GLUCOSE Routine 07/25/2017 12:01 Results for this PM [employer] procedure are in the results section. TROPONIN Routine 07/25/2017 10:25 Results for this AM [employer] procedure are in the results section. POC GLUCOSE Routine 07/25/2017 8:51 Results for this AM [employer] procedure are in the results section. ECG ED PRELIMINARY Routine 07/25/2017 7:58 Results for this INTERPRETATION AM [employer] procedure are in the results section. TROPONIN Timed 07/25/2017 6:25 Results for this AM [employer] procedure are in the results section. CT ABDOMEN PELVIS WO STAT 07/25/2017 4:20 Results for this CONTRAST AM [employer] procedure are in the results section. LACTIC ACID LEVEL Routine 07/25/2017 4:00 Results for this AM [employer] procedure are in the results section. XR ABDOMEN ACUTE INC STAT 07/25/2017 2:16 Results for this CHEST AM [employer] procedure are in the results section. CT HEAD WO CONTRAST STAT 07/25/2017 2:15 Results for this AM [employer] procedure are in the results section. ECG 12-LEAD STAT 07/25/2017 1:43 Results for this AM [employer] procedure are in the results section. BLOOD CULTURE, AEROBIC & Routine 07/25/2017 1:25 Results for this ANAEROBIC AM [employer] procedure are in the results section. ESTIMATED GFR STAT 07/25/2017 1:20 Results for this AM [employer] procedure are in the results section. TROPONIN STAT 07/25/2017 1:20 Results for this AM [employer] procedure are in the results section. CREATINE KINASE, TOTAL STAT 07/25/2017 1:20 Results for this (CPK) AM [employer] procedure are in the results section. LACTIC ACID LEVEL STAT 07/25/2017 1:20 Results for this AM [employer] procedure are in the results section. LIPASE LEVEL STAT 07/25/2017 1:20 Results for this AM [employer] procedure are in the results section. COMPREHENSIVE METABOLIC STAT 07/25/2017 1:20 Results for this PANEL AM [employer] procedure are in the results section. PROTHROMBIN TIME WITH STAT 07/25/2017 1:20 Results for this INR AM [employer] procedure are in the results section. HC COMPLETE BLD COUNT STAT 07/25/2017 1:20 Results for this W/AUTO DIFF AM [employer] procedure are in the results section. CELL COUNT AND Routine 07/25/2017 1:20 Results for this DIFFERENTIAL, BODY FLUID AM [employer] procedure are in the results section. GRAM STAIN Routine 07/25/2017 1:20 Results for this AM [employer] procedure are in the results section. ANAEROBIC CULTURE Routine 07/25/2017 1:20 Results for this AM [employer] procedure are in the results section. AEROBIC CULTURE Routine 07/25/2017 1:20 Results for this AM [employer] procedure are in the results section. BLOOD CULTURE, AEROBIC & Routine 07/25/2017 1:20 Results for this ANAEROBIC AM [employer] procedure are in the results section. SURGICAL PATHOLOGY Routine 05/26/2017 11:16 Results for this REQUEST AM CDT procedure are in the results section. COLONOSCOPY 05/26/2017 9:00 Constipation, AM CDT unspecified constipation type ESTIMATED GFR STAT 05/26/2017 8:01 Results for this AM CDT procedure are in the results section. BASIC METABOLIC PANEL STAT 05/26/2017 8:01 Results for this AM CDT procedure are in the results section. POC PANEL 4 Routine 05/26/2017 7:55 Results for this AM CDT procedure are in the results section. AMB REFERRAL TO Routine 04/12/2017 9:40 Screening for colon GASTROENTEROLOGY AM CDT cancer COLONOSCOPY 04/11/2017 9:00 Colon cancer AM CDT screening ECG 12-LEAD STAT 04/11/2017 7:38 Results for this AM CDT procedure are in the results section. ESTIMATED GFR STAT 04/11/2017 7:15 Results for this AM CDT procedure are in the results section. BASIC METABOLIC PANEL STAT 04/11/2017 7:15 Results for this AM CDT procedure are in the results section. POC PANEL 4 Routine 04/11/2017 7:13 Results for this AM CDT procedure are in the results section. after 03/26/2017 Results Hepatitis B surface Ab, quantitative (03/20/2018 7:30 AM)Only the most recent of3 resultswithin the time period is included. Hepatitis B surface Ab 22.33 IU/L [facility] Comment: The anti-HBs is greater than or equal to 10 IU/L. This patient has either had an antibody response to HBV vaccination, received a transfusion, or has recovered from HBV infection. This patient should be considered immune to hepatitis B. An anti-HBs result greater than or equal to 10 IU/L implies immunity. For post-vaccination antibody testing guidelines for the general public refer to MMWR September 09, 2005/Vol. 54(No. 16);1-23, and for healthcare workers refer to MMWR September 06, 2013/Vol. 62(No. 10);1-19. Reference Interval: anti-HBs 9.99 IU/L or less ....... Negative 10.00 IU/L or greater .... Positive Results greater than 1,000.00 IU/L are reported as greater than 1,000.00 IU/L. This assay should not be used for blood donor screening, associated re-entry protocols, or for screening Human Cell, Tissues and Cellular and Tissue-Based Products (HCT/P). Performed by [facility], [address] [place] [address] [email or web address], Petros Garcia MD - Lab. Director Specimen Serum Performing Organization Address City/State/Zipcode Phone Number [facility] [address] [place] [address] Hepatitis B surface antibody (03/20/2018 7:30 AM)Only the most recent of4 resultswithin the time period is included. Hepatitis B surface Ab Reactive (A) Non-reactive [facility] DEPARTMENT OF PATHOLOGY AND GENOMIC MEDICINE Specimen Blood Performing Organization Address City/[facility]/Zipcode Phone Number [facility] DEPARTMENT OF PATHOLOGY AND [address] [place] [phone] [place] [address] Hepatitis B surface antigen (03/20/2018 7:30 AM)Only the most recent of5 resultswithin the time period is included. Hepatitis B surface Ag Non-reactive Non-reactive [facility] DEPARTMENT OF PATHOLOGY AND GENOMIC MEDICINE Specimen Blood Performing Organization Address City/[facility]/Zipcode Phone Number [facility] DEPARTMENT OF PATHOLOGY AND [address] [place] [address] [facility] Estimated GFR (03/20/2018 4:32 AM)Only the most recent of16 resultswithin the time period is included. GFR Non Af Amer 4 (A) mL/min/1.73 m2 [facility] DEPARTMENT OF PATHOLOGY AND GENOMIC MEDICINE GFR Af Amer 4 (A) mL/min/1.73 m2 [facility] DEPARTMENT OF Comment: PATHOLOGY AND GENOMIC Chronic kidney disease: <60 mL/min/1.73m2 MEDICINE Kidney failure: <15 mL/min/1.73m2 The estimated GFR is calculated from the IDMS-traceable Modification of Diet in Renal Disease Equation. The accuracy of the calculation is poor when the creatinine is normal. Calculated values >90 mL/min/1.73m2 are not reported. This equation has not been validated in children (<18 years), women, the elderly (>70 years), or ethnic groups other than Caucasians and Americans. Specimen Plasma specimen Performing Organization Address City/State/Zipcode Phone Number [facility] DEPARTMENT OF PATHOLOGY [address] [place] [address] AND [employer] MEDICINE Basic metabolic panel (03/20/2018 4:32 AM)Only the most recent of4 resultswithin the time period is included. Sodium 136 135 - 148 mEq/L [facility] DEPARTMENT OF PATHOLOGY AND [employer] MEDICINE Potassium 4.9 3.5 - 5.0 mEq/L [facility] DEPARTMENT OF PATHOLOGY AND GENOMIC MEDICINE Chloride 95 (L) 98 - 112 mEq/L [facility] DEPARTMENT OF PATHOLOGY AND GENOMIC MEDICINE CO2 21 (L) 24 - 31 mEq/L [facility] DEPARTMENT OF PATHOLOGY AND GENOMIC MEDICINE Anion gap 20@ANIO (H) 7 - 15 mEq/L [facility] DEPARTMENT OF PATHOLOGY AND [employer] MEDICINE BUN 118 (H) 8 - 23 mg/dL [facility] DEPARTMENT OF PATHOLOGY AND [employer] MEDICINE Creatinine 14.0 (H) 0.7 - 1.2 mg/dL [facility] DEPARTMENT OF PATHOLOGY AND [employer] MEDICINE Glucose 182 (H) 65 - 99 mg/dL [facility] DEPARTMENT OF PATHOLOGY AND [employer] MEDICINE Calcium 7.6 (L) 8.8 - 10.2 mg/dL [facility] DEPARTMENT OF PATHOLOGY [facility] [employer] MEDICINE Specimen Plasma specimen Performing Organization Address [facility] Phone Number [facility] DEPARTMENT OF PATHOLOGY [address] [place] [address]. [place] [address] AND [facility] Troponin (03/20/2018 3:37 AM)Only the most recent of5 resultswithin the time period is included. Troponin <0.30 0.00 - 0.30 ng/mL [facility] DEPARTMENT OF PATHOLOGY Comment: AND GENOMIC MEDICINE 0.11 - 1.49 ng/mlMay indicate increased risk of acute coronary syndrome. >=1.5 ng/mlConsistent with acute myocardial infarction. The diagnostic value of a single normal or non-diagnostic result is questionable.Serial samples at 2-6 hour intervals are required to rule out acute myocardial injury. Specimen Plasma specimen Performing Organization Address [facility] Cent[facility]ode Phone Number [facility] DEPARTMENT [address] [place] [address] AND [employer] [facility] POC glucose (03/20/2018 2:44 AM)Only the most recent of40 resultswithin the time period is included. POC glucose 202 (H) 65 - 99 mg/dL [facility] DEPARTMENT OF PATHOLOGY AND Comment: GENOMIC MEDICINE RN Notified Meter ID: [id number] Webmaster: Alexx Cooper Performing Organization Address City/State/[facility] Centercode Phone Number [facility] DEPARTMENT OF PATHOLOGY [address] [place] [address]. [place] [address] AND [employer] [facility] Partial thromboplastin time, activated (03/19/2018 11:30 PM)Only the most recent of3 resultswithin the time period is included. PTT 28.8 23.0 - 36.0 sec [facility] DEPARTMENT OF Comment: PATHOLOGY AND GENOMIC PTT therapeutic range for unfractionated heparin is MEDICINE 61.0-112.0 seconds which corresponds to Anti-Xa 0.3-0.7 U/ml. Specimen Blood Performing Organization Address City/State/Zipcode Phone Number [facility] DEPARTMENT OF PATHOLOGY [address] [place] [address] AND [facility] Prothrombin time with INR (03/19/2018 11:30 PM)Only the most recent of5 resultswithin the time period is included. Prothrombin time 13.3 12.0 - 15.0 sec [facility] DEPARTMENT OF PATHOLOGY AND GENOMIC MEDICINE INR 1.0 [facility] DEPARTMENT OF Comment: PATHOLOGY AND [employer] The International Normalized Ratio (INR) is a therapeutic MEDICINE monitoring tool for patients who are stable on oral anticoagulant therapy. An INR of 2.0-3.0 is suggested for deep vein thrombosis/pulmonary embolism. Specimen Blood Performing Organization Address [facility]/Zipcode Phone Number [facility] DEPARTMENT OF PATHOLOGY [address] [place] [address] [employer] [facility] CBC with platelet and differential (03/19/2018 11:30 PM)Only the most recent of12 resultswithin the time period is included. WBC 8.3 4.5 - 11.0 k/uL [facility] DEPARTMENT OF PATHOLOGY AND GENOMIC MEDICINE RBC 3.68 (L) 4.40 - 6.00 m/uL [facility] DEPARTMENT OF PATHOLOGY AND GENOMIC MEDICINE HGB 11.3 (L) 14.0 - 18.0 g/dL [facility] DEPARTMENT OF PATHOLOGY AND GENOMIC MEDICINE HCT 36.3 (L) 41.0 - 51.0 % [facility] DEPARTMENT OF PATHOLOGY AND GENOMIC MEDICINE MCV 98.6 82.0 - 100.0 fL [facility] DEPARTMENT OF PATHOLOGY AND GENOMIC MEDICINE MCH 30.7 27.0 - 34.0 pg [facility] DEPARTMENT OF PATHOLOGY AND GENOMIC MEDICINE MCHC 31.1 31.0 - 37.0 g/dL [facility] DEPARTMENT OF PATHOLOGY AND GENOMIC MEDICINE RDW - SD 46.5 37.0 - 55.0 fL [facility] DEPARTMENT OF PATHOLOGY AND GENOMIC MEDICINE MPV 9.8 6.9 - 11.0 fL [facility] DEPARTMENT OF PATHOLOGY AND GENOMIC MEDICINE Platelet count 179 150 - 400 K/uL [facility] DEPARTMENT OF PATHOLOGY AND GENOMIC MEDICINE Nucleated RBC 0.00 /100 WBC [facility] DEPARTMENT OF PATHOLOGY AND GENOMIC MEDICINE Neutrophils 71.7 (H) 39.0 - 69.0 % [facility] DEPARTMENT OF PATHOLOGY AND GENOMIC MEDICINE Lymphocytes 20.3 (L) 25.0 - 45.0 % [facility] DEPARTMENT OF PATHOLOGY AND GENOMIC MEDICINE Monocytes 5.8 0.0 - 10.0 % [facility] DEPARTMENT OF PATHOLOGY AND GENOMIC MEDICINE Eosinophils 1.6 0.0 - 5.0 % [facility] DEPARTMENT OF PATHOLOGY AND GENOMIC MEDICINE Basophils 0.2 0.0 - 1.0 % [facility] DEPARTMENT OF PATHOLOGY AND GENOMIC MEDICINE Immature granulocytes 0.4 0.0 - 1.0 % [facility] DEPARTMENT OF PATHOLOGY AND GENOMIC MEDICINE Specimen Blood Performing Organization Address City/[facility]/Zipcode Phone Number [facility] DEPARTMENT OF PATHOLOGY [address] [place] [address] AND [facility] B natriuretic peptide (03/19/2018 11:30 PM) BNP 1,465 (H) 0 - 100 pg/mL [facility] DEPARTMENT OF PATHOLOGY AND GENOMIC MEDICINE Specimen Blood Performing Organization Address City/[facility]/Zipcode Phone Number [facility] DEPARTMENT OF PATHOLOGY [address] [place] [address] AND [facility] Comprehensive metabolic panel (03/19/2018 11:30 PM)Only the most recent of11 resultswithin the time period is included. Sodium 140 135 - 148 mEq/L [facility] DEPARTMENT OF PATHOLOGY AND GENOMIC MEDICINE Potassium 6.8 (HH) 3.5 - 5.0 mEq/L [facility] DEPARTMENT OF Comment: PATHOLOGY AND GENOMIC K Results called to and read back by Dr. Alonzo/ZACK at03/20/2018 01:03 MEDICINE by RAPHAEL. Specimen is not hemolyzed. Chloride 97 (L) 98 - 112 mEq/L [facility] DEPARTMENT OF PATHOLOGY AND GENOMIC MEDICINE CO2 26 24 - 31 mEq/L [facility] DEPARTMENT OF PATHOLOGY AND GENOMIC MEDICINE Anion gap 17@ANIO (H) 7 - 15 mEq/L [facility] DEPARTMENT OF PATHOLOGY AND GENOMIC MEDICINE BUN 114 (H) 8 - 23 mg/dL [facility] DEPARTMENT OF PATHOLOGY AND GENOMIC MEDICINE Creatinine 14.1 (H) 0.7 - 1.2 mg/dL [facility] DEPARTMENT OF PATHOLOGY AND GENOMIC MEDICINE Glucose 165 (H) 65 - 99 mg/dL [facility] DEPARTMENT OF PATHOLOGY AND GENOMIC MEDICINE Calcium 7.8 (L) 8.8 - 10.2 mg/dL [facility] DEPARTMENT OF PATHOLOGY AND GENOMIC MEDICINE Protein 6.7 6.3 - 8.3 g/dL [facility] DEPARTMENT OF PATHOLOGY AND GENOMIC MEDICINE Albumin 3.9 3.5 - 5.0 g/dL [facility] DEPARTMENT OF PATHOLOGY AND GENOMIC MEDICINE A/G ratio 1.4 0.7 - 3.8 [facility] DEPARTMENT OF PATHOLOGY AND GENOMIC MEDICINE Alkaline phosphatase 84 40 - 129 U/L [facility] DEPARTMENT OF PATHOLOGY AND GENOMIC MEDICINE AST 15 10 - 50 U/L [facility] DEPARTMENT OF PATHOLOGY AND GENOMIC MEDICINE ALT 23 5 - 50 U/L [facility] DEPARTMENT OF PATHOLOGY AND GENOMIC MEDICINE Total bilirubin 0.3 0.2 - 1.2 mg/dL [facility] DEPARTMENT OF PATHOLOGY AND GENOMIC MEDICINE Specimen Plasma specimen Performing Organization Address City/[facility]ercode Phone Number [facility] DEPARTMENT OF PATHOLOGY [address] [place] [address] AND [employer] MEDICINE XR Chest 1 Vw Portable (03/19/2018 11:09 PM)Only the most recent of2 resultswithin the time period is included. Narrative Performed At EXAMINATION: XR CHEST 1 VW PORTABLE [facility] CLINICAL HISTORY: malaise COMPARISON:09/26/2017 chest x-ray. IMPRESSION: Right IJ hemodialysis catheter. Mild vascular congestion. No consolidations. No pleural effusion or pneumothorax. Stable enlarged cardiac silhouette. No acute osseous abnormalities. Prior left axillary xavi dissection and left mastectomy. [facility]-[id number] Procedure Note Interface, Radiology Results Incoming - 03/19/2018 11:48 PM CDT EXAMINATION: XR CHEST 1 VW PORTABLE CLINICAL HISTORY: malaise COMPARISON: 09/26/2017 chest x-ray. IMPRESSION: Right IJ hemodialysis catheter. Mild vascular congestion. No consolidations. No pleural effusion or pneumothorax. Stable enlarged cardiac silhouette. No acute osseous abnormalities. Prior left axillary xavi dissection and left mastectomy. [facility]-[id number] Performing Organization Address City/[facility]/Zipcode Phone Number [facility] [address] [place] [address] ECG ED Preliminary Interpretation - NOT AN ORDER (03/19/2018 10:41 PM)Only the most recent of2 resultswithin the time period is included. Narrative Performed At Lynn Alonzo DO 03/20/20185:54 AM ECG ED Preliminary Interpretation - Not an Order Performed by: LYNN ALONZO Authorized by: LYNN ALONZO ECG reviewed by ED Physician in the absence of a cuff matcher: yes Interpretation: Interpretation: abnormal Rate: ECG rate:51 ECG rate assessment: normal Rhythm: Rhythm: sinus bradycardia QRS: QRS axis:Left Comments: Sinus bradycardia with first-degree AV block and left axis deviation and T-wave abnormalities but no STEMI CRITICAL CARE (03/19/2018 10:41 PM) Narrative Performed At Lynn Alonzo DO 03/20/20185:54 AM Critical Care Performed by: LYNN ALONZO Authorized by: LYNN ALONZO Critical care provider statement: Critical care time (minutes):32 Critical care was necessary to treat or prevent imminent or life-threatening deterioration of the following conditions:Metabolic crisis Critical care was time spent personally by me on the following activities:Review of old charts, re-evaluation of patient's condition, pulse oximetry, ordering and review of radiographic studies, ordering and review of laboratory studies, ordering and performing treatments and interventions, development of treatment plan with patient or surrogate, evaluation of patient's response to treatment, examination of patient and obtaining history from patient or surrogate ECG 12 lead (03/19/2018 10:23 PM)Only the most recent of5 resultswithin the time period is included. Ventricular rate 51 [facility] Atrial rate 51 [facility] [place] interval 210 [facility] QRSD interval 134 [facility] QT interval 518 [facility] QTC interval 477 [facility] P axis 1 17 [facility] QRS axis 1 -42 [facility] T wave axis 111 [facility] EKG impression Sinus bradycardia with 1st degree AV [facility] block-Left axis deviation-Nonspecific intraventricular block-T wave abnormality, consider lateral ischemia-- Performing Organization Address City/State/Zipcode Phone Number [facility] [address] [place] [address] Hemoglobin A1c (01/05/2018 4:58 AM)Only the most recent of2 resultswithin the time period is included. Hemoglobin A1C 6.3 (H) 4.0 - 6.0 % [facility] DEPARTMENT OF PATHOLOGY Comment: AND GENOMIC MEDICINE Less than 6% - Goal of therapy for Type II Diabetes Less than 7%-Goal of therapy for Type I Diabetes Less than 8%-Acceptable control for Type I or Type II Diabetes Greater than 8%-Unacceptable control; action indicated. ([id number]) Specimen Blood Performing Organization Address City/State/Zipcode Phone Number [facility] DEPARTMENT OF PATHOLOGY [address] [place] [address] AND [employer] MEDICINE Lipid panel (01/05/2018 4:58 AM) Cholesterol 131 0 - 199 mg/dL [facility] DEPARTMENT OF PATHOLOGY AND GENOMIC MEDICINE Triglycerides 231 (H) 0 - 149 mg/dL [facility] DEPARTMENT OF PATHOLOGY AND GENOMIC MEDICINE HDL cholesterol 26 (L) 40 - 99,999 [facility] DEPARTMENT OF mg/dL PATHOLOGY AND GENOMIC MEDICINE LDL cholesterol 74 0 - 99 mg/dL [facility] DEPARTMENT OF PATHOLOGY AND GENOMIC MEDICINE Lipid panel See below [facility] DEPARTMENT OF interpretation Comment: PATHOLOGY AND Total Cholesterol (mg/dL) GENOMIC MEDICINE <200 Desirable 302-609Ydjzagfubn-ckhd >=240High Triglycerides (mg/dL) <150 Normal [id number]-elnm 200-499High >=500Very high HDL Cholesterol (mg/dL) <40Low (male) <50Low (female) LDL Cholesterol (mg/dL) <100 Optimal 100-129Near or above optimal 933-276Oijsnsvkva-pdch 160-189High >=190Very high Risk Catergories that modify LDL goals. 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 Left main - Luminal irregularities 2. LAD - Luminal irregularities 3. Ramus - Luminal irregularities 4. LCX - Luminal irregularities 5. RCA - 30% Proximal/mid stenosis, otherwise luminal irregularities, Right dominant coronary system Performing Organization Address [facility] Cent[facility]ode Phone Number [facility] [address] [place] [address] XR Finger 2+ Vw Right (12/26/2017 4:21 PM) Narrative Performed At Comparison films December 13, 2017. 3 view of the right little finger was [facility] obtained. Previous area of cortical irregularity concerning for a closed nondisplaced fracture the proximal phalanx of the right little finger is no longer visualized. Performing Organization Address [facility] Phone Number [facility] [address] [place] [address] CTA Abdomen Pelvis W And Or Wo Contrast (12/19/2017 8:31 AM) Narrative Performed At EXAMINATION:CT ANGIOGRAM ABDOMEN PELVIS W AND OR WO CONTRAST [facility] CLINICAL HISTORY:N18.6 End stage renal disease, Renal Transplant Evaluation COMPARISON:CT of the abdomen and pelvis dated 07/25/2017, 10/12/2015, and 12/29/2014 TECHNIQUE: Axial images were obtained through the abdomen and pelvis after the administration of intravenous contrast per CTA protocol. Coronal, sagittal, and 3-D maximum intensity projection images were obtained.Up-to-date CT equipment and radiation dose reduction techniques were utilized. FINDINGS: ABDOMEN/PELVIS: LOWER THORAX:The visualized lung bases are clear. The heart is mildly enlarged. HEPATOBILIARY:No focal hepatic lesion. No biliary ductal dilatation. There is reflux of contrast into the hepatic veins. The patient is status post cholecystectomy. SPLEEN:No splenomegaly. PANCREAS:No focal masses or ductal dilation. ADRENALS:An approximately 4 cm peripherally calcified cystic lesion in the left adrenal gland is unchanged. KIDNEYS:The kidneys are atrophic. No calculi or hydronephrosis. An approximately 2.3 cm cyst is in the left kidney. PERITONEUM/RETROPERITONEUM:No free air or fluid. No lymphadenopathy. Previously seen ascites is resolved. GI TRACT:Visualized portions of the bowel demonstrate no distention or wall thickening. Scattered colonic diverticula are seen without diverticulitis. PELVIC ORGANS/BLADDER:Urinary bladder is contracted. There is diffuse fatty infiltration of the urinary bladder wall. BONES AND SOFT TISSUES:No acute osseous abnormality or destructive osseous lesion. There is mild degenerative disc disease of the lumbosacral spine. CTA: AORTA:There is calcified atherosclerotic plaque in the abdominal aorta without aneurysm or stenosis. ILIAC ARTERIES: There is calcified atherosclerotic plaque in the bilateral common iliac arteries which results in mild stenosis, right greater than left. The bilateral internal iliac arteries and external iliac arteries are patent. The external iliac arteries measure 6 mm in diameter on the right and 7 mm in diameter on the left. MESENTERIC ARTERIES: The inferior mesenteric artery, superior mesenteric artery, and celiac arteries are patent.There is classic celiac anatomy. RENAL ARTERIES:Single renal arteries are identified bilaterally.There is severe bilateral renal artery stenosis. IMPRESSION: 1. Mild bilateral common iliac artery stenosis related to calcified atherosclerotic plaque, right greater than left. The bilateral external iliac arteries are patent. 2. Severe bilateral renal artery stenosis. 3. Reflux of contrast into the hepatic veins suggests right heart dysfunction. 4. Stable cystic lesion in the left adrenal gland. [facility]-[id number] Procedure Note [facility], Radiology Results Incoming - 12/19/2017 10:42 AM CDT EXAMINATION: CT ANGIOGRAM ABDOMEN PELVIS W AND OR WO CONTRAST CLINICAL HISTORY: N18.6 End stage renal disease, Renal Transplant Evaluation COMPARISON: CT of the abdomen and pelvis dated 07/25/2017, 10/12/2015, and 2014 TECHNIQUE: Axial images were obtained through the abdomen and pelvis after the administration of intravenous contrast per CTA protocol. Coronal, sagittal, and 3-D maximum intensity projection images were obtained. Up-to-date CT equipment and radiation dose reduction techniques were utilized. FINDINGS: ABDOMEN/PELVIS: LOWER THORAX: The visualized lung bases are clear. The heart is mildly enlarged. HEPATOBILIARY: No focal hepatic lesion. No biliary ductal dilatation. There is reflux of contrast into the hepatic veins. The patient is status post cholecystectomy. SPLEEN: No splenomegaly. PANCREAS: No focal masses or ductal dilation. ADRENALS: An approximately 4 cm peripherally calcified cystic lesion in the left adrenal gland is unchanged. KIDNEYS: The kidneys are atrophic. No calculi or hydronephrosis. An approximately 2.3 cm cyst is in the left kidney. PERITONEUM/RETROPERITONEUM: No free air or fluid. No lymphadenopathy. Previously seen ascites is resolved. GI TRACT: Visualized portions of the bowel demonstrate no distention or wall thickening. Scattered colonic diverticula are seen without diverticulitis. PELVIC ORGANS/BLADDER: Urinary bladder is contracted. There is diffuse fatty infiltration of the urinary bladder wall. BONES AND SOFT TISSUES: No acute osseous abnormality or destructive osseous lesion. There is mild degenerative disc disease of the lumbosacral spine. CTA: AORTA: There is calcified atherosclerotic plaque in the abdominal aorta without aneurysm or stenosis. ILIAC ARTERIES: There is calcified atherosclerotic plaque in the bilateral common iliac arteries which results in mild stenosis, right greater than left. The bilateral internal iliac arteries and external iliac arteries are patent. The external iliac arteries measure 6 mm in diameter on the right and 7 mm in diameter on the left. MESENTERIC ARTERIES: The inferior mesenteric artery, superior mesenteric artery , and celiac arteries are patent. There is classic celiac anatomy. RENAL ARTERIES: Single renal arteries are identified bilaterally. There is severe bilateral renal artery stenosis. IMPRESSION: 1. Mild bilateral common iliac artery stenosis related to calcified atherosclerotic plaque, right greater than left. The bilateral external iliac arteries are patent. 2. Severe bilateral renal artery stenosis. 3. Reflux of contrast into the hepatic veins suggests right heart dysfunction. 4. Stable cystic lesion in the left adrenal gland. [facility]-[id number] Performing Organization Address City/State/Zipcode Phone Number [facility] [address] [place] [address] Low resolution full typing by SSO (12/19/2017 6:50 AM) [facility] DEPARTMENT OF PATHOLOGY AND GENOMIC MEDICINE Low resolution full typing See link below for PDF [facility] DEPARTMENT OF by SSO Lab Report PATHOLOGY AND GENOMIC MEDICINE Performing Organization Address City/State/Zipcode Phone Number [facility] DEPARTMENT OF PATHOLOGY AND [address] [place] [address] GENOMIC MEDICINE C1Q class 1 & 2 antibody (12/19/2017 6:50 AM) [facility] DEPARTMENT OF PATHOLOGY AND GENOMIC MEDICINE C1Q class 1 & 2 antibody See link below for PDF [facility] DEPARTMENT OF PATHOLOGY Lab Report AND GENOMIC MEDICINE Performing Organization Address [facility] Phone Number [facility] DEPARTMENT OF PATHOLOGY AND [address] [place] [id number] [place] [address] MEDICINE HSV 1 & 2 glycoprotein G Ab, IgG (12/19/2017 6:50 AM) HSV 1 glycoprotein G Ab, NegativeComment: Negative [facility] DEPARTMENT OF IgG Negative: No IgG PATHOLOGY AND GENOMIC antibodies to HSV1 MEDICINE detected. HSV 2 glycoprotein G Ab, NegativeComment: Negative [facility] DEPARTMENT OF IgG Negative: No IgG PATHOLOGY AND GENOMIC antibodies to HSV2 MEDICINE detected. Specimen Serum Performing Organization Address [facility] Phone Number [facility] DEPARTMENT OF PATHOLOGY AND [address] [place] [address] MEDICINE Ainsley-Banuelos virus antibody test (12/19/2017 6:50 AM) EBV Ab to viral capsid POSITIVE (A) Negative [facility] DEPARTMENT OF Ag, IgG PATHOLOGY AND GENOMIC MEDICINE EBV Ab to viral capsid Negative Negative [facility] DEPARTMENT OF Ag, IgM PATHOLOGY AND GENOMIC MEDICINE EBV Ab to nuclear Ag, POSITIVE (A) Negative [facility] DEPARTMENT OF IgG PATHOLOGY AND GENOMIC MEDICINE EBV Ab to early (D) Ag, Negative Negative [facility] DEPARTMENT OF IgG Comment: PATHOLOGY AND GENOMIC Interpretive Information: MEDICINE Infection StatusVCA_IgG No Previous_ Acute + Recent + Past + Reactivation+ Infection StatusVCA_IgM No Previous_ Acute + Recent +/- Past - Reactivation+/- Infection Status EA No Previous_ Acute +/- Recent +/- Past - Reactivation+ Infection Status EBNA No Previous_ Acute - Recent +/- Past + Reactivation+ Specimen Serum Performing Organization Address City/[facility] Phone Number [facility] DEPARTMENT OF PATHOLOGY AND [address] [place] [phone] GENOMIC MEDICINE Single antigen beads (12/19/2017 6:50 AM) [facility] DEPARTMENT OF PATHOLOGY AND GENOMIC MEDICINE Single antigen beads See link below for PDF [facility] DEPARTMENT OF PATHOLOGY Lab Report AND GENOMIC MEDICINE Performing Organization Address City/[facility]/Zipcode Phone Number [facility] DEPARTMENT OF PATHOLOGY AND [address] [place] [address] HSV type 1/2 combined Ab, IgM (12/19/2017 6:50 AM) HSV 1/2 combined Ab, IgM 0.21 <=0.89 IV [facility] Comment: INTERPRETIVE INFORMATION: Herpes Simplex Virus Type 1 and/or 2 Antibodies, IgM by ABHI 0.89 IV or Less .......... Not Detected 0.90 - 1.09 IV ........... Indeterminate- Repeat testing in 10-14 days may be helpful. 1.10 IV or Greater ....... Detected-IgM antibody to HSV detected, which may indicate a current or recent infection. However, low levels of IgM antibodies may occasionally persist for more than 12 months post- infection. Performed by [facility], [address] [place] [address] www.[email or web address], Petros Garcia MD - Lab. Director Specimen Serum Performing Organization Address [facility] Centercode Phone Number [facility] [address] [place] [address] HLA autologous crossmatch, AHG (12/19/2017 6:50 AM) [facility] DEPARTMENT OF PATHOLOGY AND GENOMIC MEDICINE HLA autologous crossmatch See link below for PDF [facility] DEPARTMENT OF Lab Report PATHOLOGY AND GENOMIC MEDICINE Performing Organization Address City/[facility]ode Phone Number [facility] DEPARTMENT OF PATHOLOGY AND [address] [place] [address] Herpes simplex virus by PCR (12/19/2017 6:50 AM) Herpes virus, PCR Not-Detected Not-Detected [facility] DEPARTMENT OF PATHOLOGY AND GENOMIC MEDICINE Herpes virus, PCR See link below for PDF [facility] DEPARTMENT OF PATHOLOGY Lab ReportComment: Case AND GENOMIC MEDICINE Number: [id number] Performing Organization Address City/[facility]ode Phone Number [facility] DEPARTMENT OF PATHOLOGY AND [address] [place] [address] Cytomegalovirus Ab, IgM (12/19/2017 6:50 AM) Cytomegalovirus Ab, IgM NegativeComment: Negative: Negative [facility] DEPARTMENT OF CMV IgM antibodies were PATHOLOGY AND GENOMIC not detected. MEDICINE Specimen Serum Performing Organization Address City/State/[facility] Centercode Phone Number [facility] DEPARTMENT OF PATHOLOGY AND [address] [place] [address] MEDICINE ABORh - transplant (12/19/2017 6:50 AM)Only the most recent of2 resultswithin the time period is included. ABO grouping A [facility] DEPARTMENT OF PATHOLOGY AND GENOMIC MEDICINE Rh type POS [facility] DEPARTMENT OF PATHOLOGY AND GENOMIC MEDICINE Specimen Blood Performing Organization Address City/[facility]ode Phone Number [facility] DEPARTMENT OF PATHOLOGY AND [address] [place] [address] Cytomegalovirus Ab, IgG (12/19/2017 6:50 AM) Cytomegalovirus Ab, IgG Positive (A) Negative [facility] DEPARTMENT OF Comment: PATHOLOGY AND GENOMIC Positive; IgG antibody to CMV detected which may indicate MEDICINE exposure to CMV infection. Specimen Serum Performing Organization Address City/[facility]ercode Phone Number [facility] DEPARTMENT OF PATHOLOGY AND [address] [place] [address] Triglycerides (12/19/2017 6:50 AM) Triglycerides 245 (H) <150 mg/dL [facility] DEPARTMENT OF PATHOLOGY AND GENOMIC MEDICINE Specimen Plasma specimen Performing Organization Address City/[facility]ercode Phone Number [facility] DEPARTMENT OF PATHOLOGY AND [address] [place] [address] Phosphorus level (12/19/2017 6:50 AM) Phosphorus 5.7 (H) 2.4 - 4.5 mg/dL [facility] DEPARTMENT OF PATHOLOGY AND GENOMIC MEDICINE Specimen Plasma specimen Performing Organization Address City/[facility]ode Phone Number [facility] DEPARTMENT OF PATHOLOGY AND [address] [place] [address] Parathyroid hormone (12/19/2017 6:50 AM) PTH 669 (H) 15 - 65 pg/mL [facility] DEPARTMENT OF PATHOLOGY AND GENOMIC MEDICINE Specimen Blood Performing Organization Address City/[facility]/Zipcode Phone Number [facility] DEPARTMENT OF PATHOLOGY AND [address] [place] [address] LDH (12/19/2017 6:50 AM) LDH 158 87 - 225 U/L [facility] DEPARTMENT OF PATHOLOGY AND GENOMIC MEDICINE Specimen Plasma specimen Performing Organization Address City/State/Zipcode Phone Number [facility] DEPARTMENT OF PATHOLOGY AND [address] [place] [address] Fasting glucose level (12/19/2017 6:50 AM) Glucose, fasting 123 (H) 65 - 99 mg/dL [facility] DEPARTMENT OF PATHOLOGY AND GENOMIC MEDICINE Specimen Blood Performing Organization Address City/[facility]/Zipcode Phone Number [facility] DEPARTMENT OF PATHOLOGY AND [address] [place] [address] GENOMIC [facility] Creatinine level (12/19/2017 6:50 AM) Creatinine 9.7 (H) 0.7 - 1.2 mg/dL [facility] DEPARTMENT OF PATHOLOGY AND GENOMIC MEDICINE Specimen Plasma specimen Performing Organization Address City/[facility]ode Phone Number [facility] DEPARTMENT OF PATHOLOGY AND [address] [place] [address] MEDICINE Cholesterol (12/19/2017 6:50 AM) Cholesterol 132 <200 mg/dL [facility] DEPARTMENT OF PATHOLOGY AND GENOMIC MEDICINE Specimen Plasma specimen Performing Organization Address City/[facility] Phone Number [facility] DEPARTMENT OF PATHOLOGY AND [address] [place] [address] Occult blood, stool (12/16/2017 12:00 PM)Only the most recent of3 resultswithin the time period is included. Occult blood, stool Negative for occult blood. [facility] DEPARTMENT OF PATHOLOGY Comment: AND GENOMIC MEDICINE Specimen Information Specimen Source: Stool Specimen Site: Nonpreserved Specimen Stool - Nonpreserved Performing Organization Address City/[facility]ercode Phone Number [facility] DEPARTMENT OF PATHOLOGY AND [address] [place] [address] MEDICINE XR Hand 3+ Vw Right (12/14/2017 2:42 PM) Narrative Performed At [facility] the right hand was obtained. There appears to be a nondisplaced [facility] base of the fifth proximal phalanx fracture extending into the intra-articular space, with approximately 10-20% joint involvement. The metacarpal bones are otherwise normal in appearance with interphalangeal joint space is well-maintained. Alignment is normal with atherosclerotic vascular calcification visualized. Performing Organization Address City/[facility]/Zipcode Phone Number [facility] [address] [place] [phone] [place] Renal (09/26/2017 12:23 PM) Narrative Performed At EXAMINATION:US RENAL [facility] CLINICAL HISTORY: 62 years MaleN18.6 End stage renal disease, Renal Transplant Evaluation [facility] COMPARISON:11/11/2007 TECHNIQUE:Ultrasound evaluation of the kidneys and bladder. IMPRESSION: 1.Right kidney measures 10.3 x 3.5 x 5.7 cm. Left kidney measures 10.1 x 4.9 x 5.8 cm. Kidneys are markedly echogenic with cortical thinning consistent with history of end-stage renal disease. 2.There are some areas of shadowing in the right renal pelvis, may represent nonobstructing calyceal stones or vascular calcifications. There is no hydronephrosis. 2 benign left renal cysts, larger measures 2.5 cm. 3.Bladder was collapsed, not well evaluated [facility]-[id number] Procedure Note Interface, Radiology Results Incoming - 09/26/2017 1:49 PM [employer]INE[employer] EXAMINATION: US RENAL CLINICAL HISTORY: 62 years Male N18.6 End stage renal disease, Renal Transplant Evaluation [facility] COMPARISON: 11/11/2007 TECHNIQUE: Ultrasound evaluation of the kidneys and bladder. IMPRESSION: 1. Right kidney measures 10.3 x 3.5 x 5.7 cm. Left kidney measures 10.1 x 4.9 x 5.8 cm. Kidneys are markedly echogenic with cortical thinning consistent with history of end-stage renal disease. 2. There are some areas of shadowing in the right renal pelvis, may represent nonobstructing calyceal stones or vascular calcifications. There is no hydronephrosis. 2 benign left renal cysts, larger measures 2.5 cm. 3. Bladder was collapsed, not well evaluated [facility]-[id number] Performing Organization Address City/State/Zipcode Phone Number [facility] [address] [place] [address] XR Chest 2 Vw (09/26/2017 11:44 AM) Narrative Performed At EXAMINATION:[facility]:N18.6 End stage renal disease, Renal Transplant Evaluation COMPARISON:None IMPRESSION: 1.Lungs are clear. 2.Moderate cardiomegaly. 3.Atherosclerotic thoracic aorta. 4.Postsurgical changes in the right neck and left axilla. Tunneled venous catheter in the right chest. [facility]-[id number] Procedure Note Interface, Radiology Results Incoming - 09/26/2017 11:56 AM SALVAGE ENGINEER EXAMINATION: XR CHEST 2 VW CLINICAL HISTORY: N18.6 End stage renal disease, Renal Transplant Evaluation COMPARISON: None IMPRESSION: 1. Lungs are clear. 2. Moderate cardiomegaly. 3. Atherosclerotic thoracic aorta. 4. Postsurgical changes in the right neck and left axilla. Tunneled venous catheter in the right chest. [facility]-[id number] Performing Organization Address City/State/Zipcode Phone Number [facility] [address] [place] [phone] A1 antigen patient typing (09/14/2017 12:10 PM) A1 Antigen Patient Typing POS [facility] DEPARTMENT OF PATHOLOGY AND GENOMIC MEDICINE Performing Organization Address City/State/Zipcode Phone Number [facility] DEPARTMENT OF PATHOLOGY AND [address] [place] [id number] [place] [address] Syphilis treponemal IgG (09/14/2017 12:10 PM) Syphilis treponemal IgG Non-reactiveComment: Non-reactive [facility] DEPARTMENT OF Non-reactive: No PATHOLOGY AND GENOMIC serological evidence of MEDICINE Syphilis infection Specimen Serum Performing Organization Address [facility] Phone Number [facility] DEPARTMENT OF PATHOLOGY AND [address] [place] [address] Opiates, s/p, quant (09/14/2017 12:10 PM) 6-acetylmorphine, s/p, <2 ng/mL [facility] quant Comment: INTERPRETIVE INFORMATION: Opiates, Serum or Plasma, Quantitative Methodology: Quantitative Liquid Chromatography-Tandem Mass Spectrometry Positive cutoff: 2 ng/mL For medical purposes only; not valid for forensic use. Identification of specific drug(s) taken by specimen donor is problematic due to common metabolites, some of which are prescription drugs themselves. The absence of expected drug(s) and/or drug metabolite(s) may indicate non-compliance, inappropriate timing of specimen collection relative to drug administration, poor drug absorption, or limitations of testing. All drugs covered are the non-glucuronidated (free) form. The concentration value must be greater than or equal to the cutoff to be reported as positive. A very small amount of an unexpected drug analyte in the presence of a large amount of an expected drug analyte may reflect pharmaceutical impurity. Interpretive questions should be directed to the laboratory. Test developed and characteristics determined by [facility]. See Compliance Statement B: [employer]/CS Codeine, s/p, quant <2 ng/mL [facility] Morphine, s/p, quant <2 ng/mL [facility] Hydrocodone, s/p, quant 30 ng/mL [facility] Comment: Hydrocodone may arise from hydrocodone-containing drugs or as a metabolite of codeine. Hydrocodone is metabolized to hydromorphone. Hydromoprhone, s/p, quant <2 ng/mL [facility] Oxycodone, s/p, quant <2 ng/mL [facility] Oxymorphone, s/p, quant <2 ng/mL [facility] Comment: Performed by [facility], [address] [place] [address] www.[email or web address], Petros Garcia MD - Lab. Director Specimen Serum Performing Organization Address City/State/Zipcode Phone Number [facility] [address] [place] [address] TB T-SPOT (09/14/2017 12:10 PM) TB T-SPOT SEE NOTE [facility] Comment: T-SPOT TUBERCULOSIS Nil Control: 0 Panel A: 0 Panel B: 0 Positive Control: >20 Result:NEGATIVE NOTE: TMTC INDICATES TOO MANY SPOTS TO COUNT SAT INDICATES THE WELL WAS SATURATED RESULTS INTERPRETATION: RESULTS ARE NEGATIVE WHEN (PANEL A-NIL) OR (PANEL B-NIL) <=4 SPOTS, INCLUDING VALUES LESS THAN ZERO. RESULTS ARE POSITIVE WHEN (PANEL A-NIL) OR (PANEL B-NIL) >=8 SPOTS RESULTS ARE BORDERELINE WHEN EITHER (PANEL A-NIL) OR (PANEL B-NIL)=5,6,0R 7. THE TEST IS INVALID WHEN EITHER OF THE FOLLOWING CONDITIONS IS MET: 1.) THE NIL CONTROL HAS >10 SPOTS 2.) THE MITOGEN (POSITIVE CONTROL) HAS <20 SPOTS AND BOTH (PANEL A-NIL) AND (PANEL B-NIL) <=4 SPOTS. M. TUBERCULOSIS INFECTION UNLIKELY, BUT CANNOT BE EXCLUDED ESPECIALLY WHEN: 1. ANY ILLNESS IS CONSISTENT WITH TB DISEASE. 2. LIKELIHOOD OF PROGRESSION TO DISEASE (e.g. DUE TO IMMUNOSUPPRESSION) IS INCREASED. LIMITATIONS: DIAGNOSING OR EXCLUDING TUBERCULOSIS DISEASE, AND ASSESSING THE PROBABILITY OF LTBI, REQUIRES A COMBINATION OF EPIDEMIOLOGICAL, HISTORICAL, MEDICAL, AND DIAGNOSTIC FINDINGS THAT SHOULD BE TAKEN INTO ACCOUNT WHEN INTERPRETING T-SPOT.TB REFER TO THE MOST RECENT CDC GUIDANCE (HTTP: //WWW.CDC.GOV/NCHSTP/TB) FOR DETAILED RECOMMENDATIONS ABOUT DIAGNOSING TB INFECTION (INCLUDING DISEASE) AND SELECTING PERSONS FOR TESTING. 1.) A FALSE NEGATIVE RESULT CAN BE CAUSED BY INCORRECT BLOOD SAMPLE COLLECTION OR IMPROPER HANDLING OF THE SPECIMEN, AFFECTING LYMPHOCYTE FUNCTION 2.) THE PERFORMANCE OF T-SPOT.TB HAS NOT BEEN ADEQUATELY EVALUATED WITH SPECIMENS FROM INDIVIDUALS YOUNGER THANAGE 17 YEARS, IN WOMEN, AND IN PATIENTS WITH HEMOPHILIA. 3-) A FALSE POSITIVE RESULT WAS OBTAINED FOR T-SPOT.TB WHEN TESTED IN SUBJECTS WITH M. XENOPI, M. KANSASII, AND M. GORDONAE.WHILE ESAT-6 AND CFP-10 ANTIGENS ARE ABSENT FROM BCG STRAINS OF M. BOVIS AND FROM MOST ENVIRONMENTAL MYCOBACTERIA, IT IS POSSIBLE THAT A POSITIVE T-SPOT.TB RESULT MAY BE DUE TO INFECTION WITH M. KANSASII, M. SZULGAI, M. GORDONAE, OR M. MARINUM. ALTERNATIVE TESTS WOULD BE REQUIRED IF THESE INFECTIONS ARE SUSPECTED. 4.) A NEGATIVE TEST RESULT DOES NOT EXCLUDE THE POSSIBILITY OF EXPOSURE TO, OR INFECTION WITH, M. TUBERCULOSIS. PATIENTS WITH RECENT EXPOSURE TO TB INFECTED INDIVIDUALS EXHIBITING A NEGATIVE T-SPOT.TB RESULT SHOULD BE CONSIDERED FOR RETESTING WITHIN 6 WEEKS OR IF OTHER RELEVANT CLINICAL SYMPTOMS INDICATE POSSIBLE INFECTION. 5.) A POSITIVE TEST RESULT DOES NOT RULE IN ACTIVE TB DISEASE; OTHER TESTS SHOULD BE PERFORMED TO CONFIRM THE DIAGNOSIS OF ACTIVE TB DISEASE SUCH SPUTUM SMEAR AND CULTURE, PCR AND CHEST RADIOGRAPHY. 6.) T-SPOT.TB TEST HAS NOT BEEN EVALUATED IN SUBJECTS WHO HAVE RECEIVED >1 MONTH OF ANTI-TB THERAPY. 7. ) REFRIGERATED AND FROZEN SAMPLES ARE NOT RECOMMENDED FOR USE WITH T=SPOT.TB TEST. Performed by: [facility] Molecular Tuberculosis Laboratory [facility] ([id number]) [place], [place] [address] Specimen Blood Performing Organization Address City/State/Zipcode Phone Number [facility] [address] [place] [address] Nicotine and metabolites, serum (09/14/2017 12:10 PM) Nicotine <2.0 0.0 - 2.0 ng/mL [facility] DEPARTMENT OF PATHOLOGY AND GENOMIC MEDICINE Cotinine <2.0 0.0 - 2.0 ng/mL [facility] DEPARTMENT OF PATHOLOGY AND GENOMIC MEDICINE 2-YS-iektrvdy <5.0 0.0 - 5.0 ng/mL [facility] DEPARTMENT OF Comment: PATHOLOGY AND GENOMIC This test was developed and its performance characteristics determined by MEDICINE the Department of Pathology and Genomic Medicine, [facility]. Serum nicotine and its metabolites cotinine and 8-MW-idrsyqtn are tested by HPLC tandem mass spectrometry. It has not been cleared or approved by FDA. The laboratory is regulated under CLIA as qualified to perform high-complexity testing. This test is used for clinical purposes. It should not be regarded as investigational or for research. Specimen Blood Performing Organization Address [facility]ode Phone Number [facility] DEPARTMENT OF PATHOLOGY AND [address] [place] [address] Hepatitis C antibody (09/14/2017 12:10 PM) Hepatitis C Ab Non-reactive Non-reactive [facility] DEPARTMENT OF PATHOLOGY AND [facility] Specimen Blood Performing Organization Address [facility] Phone Number [facility] DEPARTMENT OF PATHOLOGY AND [address] [place] [address] Hepatitis A antibody total (09/14/2017 12:10 PM) Hepatitis A total Ab Non-reactive Non-reactive [facility] DEPARTMENT OF PATHOLOGY AND [facility] Specimen Blood Performing Organization Address [facility] Phone Number [facility] DEPARTMENT OF PATHOLOGY AND [address] [place] [address] Drug solorzano 9, ser/christina, scrn w/rflx to conf (09/14/2017 12:10 PM) Amphetamines, s/p, Negative Cutoff 30 ng/mL [facility] screen Methamphetamine, s/p, Negative Cutoff 30 ng/mL [facility] screen Barbiturates, s/p, Negative Cutoff 75 ng/mL [facility] screen Benzodiazepines, s/p, Negative Cutoff 75 ng/mL [facility] screen Cocaine, s/p, screen Negative Cutoff 30 ng/mL [facility] Methadone, s/p, screen Negative Cutoff 40 ng/mL [facility] Opiates, s/p, screen Positive Cutoff 30 ng/mL [facility] Comment: If the screen is positive, then confirmation by mass spectrometry will be added. Additional charges will apply. Unconfirmed positive may be useful for medical purposes, but does not meet forensic standards. Oxycodone, s/p, screen Negative Cutoff 30 ng/mL [facility] Phencyclidine, s/p, Negative Cutoff 15 ng/mL [facility] screen Cannabinoids, s/p, Negative Cutoff 30 ng/mL [facility] screen Drug screen comments, See Note [facility] serum Comment: INTERPRETIVE INFORMATION: Drug Screen 9 Panel, Serum or Plasma - Immunoassay Screen with Reflex to Mass Spectrometry Confirmation/ Quantitation 1. Methodology: Qualitative Immunoassay Screen 2. Drugs/Drug classes reported as "Positive" are automatically reflexed to mass spectrometry confirmation/quantitation testing. An immunoassay unconfirmed positive screen result may be useful for medical purposes but does not meet forensic standards. 3. The absence of expected drug(s) and/or drug metabolite(s) may indicate non-compliance, inappropriate timing of specimen collection relative to drug administration, poor drug absorption, or limitations of testing. The concentration at which the screening test can detect a drug or metabolite varies within a drug class. Specimens for which drugs or drug classes are detected by the screen are automatically reflexed to a second, more specific technology (mass spectrometry). The concentration value must be greater than or equal to the cutoff to be reported as positive. Interpretive questions should be directed to the laboratory. 4. For medical purposes only; not valid for forensic use. Test developed and characteristics determined by [facility]. See Compliance Statement B: [employer]/CS Performed by [facility], [address] [place] [address] www.[employer], Petros Garcia MD - Lab. Director Specimen Serum Performing Organization Address [facility] Centercode Phone Number [facility] [address] [place] [address] Hepatitis B core antibody total (09/14/2017 12:10 PM)Only the most recent of2 resultswithin the time period is included. Hepatitis B core total Ab Non-reactive Non-reactive [facility] DEPARTMENT OF PATHOLOGY AND GENOMIC MEDICINE Specimen Blood Performing Organization Address City/[facility]/Zipcode Phone Number [facility] DEPARTMENT OF PATHOLOGY AND [address] [place] [address] [facility] C-peptide (09/14/2017 12:10 PM) C-peptide 17.1 (H) 1.1 - 4.4 ng/mL [facility] DEPARTMENT OF PATHOLOGY AND GENOMIC MEDICINE Specimen Plasma specimen Performing Organization Address City/[facility]/Zipcode Phone Number [facility] DEPARTMENT OF PATHOLOGY AND [address] [place] [phone] GENOMIC MEDICINE HIV 1, 2 antibody (09/14/2017 12:10 PM) HIV 1, 2 antibody Non-reactive Non-reactive [facility] DEPARTMENT OF Comment: PATHOLOGY AND GENOMIC Starting from December 15 2015, 4th generation HIV screening MEDICINE and confirmation assays are in use at [facility], consistent with the CDC-recommended algorithm. The screening test detects antibodies to HIV-1, HIV-2 and the p24 antigen. Positive screening results will be automatically reflexed to a HIV-1/HIV-2 differentiation assay. Indeterminant HIV-1 results will be further automatically reflexed to a nucleic acid test for detection of acute infection. Western blot will no longer be performed as a confirmation test. For a quick reference guide on the testing algorithm, please refer to: http://stacks.cdc.gov/view/cdc/97665. Specimen Blood Performing Organization Address City/State/Zipcode Phone Number [facility] DEPARTMENT OF PATHOLOGY AND [address] [place] [address] GENOMIC MEDICINE Serum electrophoresis (09/14/2017 12:10 PM) Protein 7.3 6.3 - 8.3 g/dL [facility] DEPARTMENT OF Comment: PATHOLOGY AND GENOMIC 4.6-7.0 g/dL MEDICINE 1 week 4.4-7.6 g/dL 7 months-1year5.1-7.3 g/dL 1-2 years5.6-7.5 g/dL >3 years6.0-8.0 g/dL 18-150 6.3-8.3 g/dL SPE albumin 4.55 4.00 - 5.30 g/dL [facility] DEPARTMENT OF PATHOLOGY AND GENOMIC MEDICINE SPE alpha 1 0.18 0.10 - 0.25 g/dL [facility] DEPARTMENT OF PATHOLOGY AND GENOMIC MEDICINE SPE alpha 2 0.69 0.58 - 0.84 g/dL [facility] DEPARTMENT OF PATHOLOGY AND GENOMIC MEDICINE SPE beta 0.74 0.50 - 1.10 g/dL [facility] DEPARTMENT OF PATHOLOGY AND GENOMIC MEDICINE SPE gamma 1.15 0.60 - 1.30 g/dL [facility] DEPARTMENT OF PATHOLOGY AND GENOMIC MEDICINE SPE extended See CommentComment: A [facility] DEPARTMENT OF interpretation normal serum protein PATHOLOGY AND GENOMIC study. MEDICINE SPE interpretation See CommentComment: [facility] DEPARTMENT OF Renita Almeida MD; PATHOLOGY AND GENOMIC Lesly West, PhD; MEDICINE Mickey King MD Specimen Serum Performing Organization Address City/[facility] Cent[facility] Phone Number [facility] DEPARTMENT OF PATHOLOGY AND [phone] [facility] Prostate specific antigen (09/14/2017 12:10 PM) PSA 1.4 0.0 - 4.0 ng/mL [facility] DEPARTMENT OF PATHOLOGY Comment: AND [facility] The FILIPE 8000 PSA immunoassay was used. Results obtained with different assay methods or kits should not be used interchangeably and may be different. Specimen Plasma specimen Performing Organization Address City/[facility] Cent[facility]ode Phone Number [facility] DEPARTMENT OF PATHOLOGY AND [address] [place], [place] [phone] [place] [address] GENERAL (08/01/2017 2:46 PM) Narrative Performed At [facility]MU[facility] Ward 08/01/20172:46 PM Right Basilic vein Midline cath - 4 fen Date/Time: 08/01/2017 2:30 PM Performed by: IVETTE HERRERA Authorized by: IVETTE HERRERA Consent: Consent obtained:Verbal Consent given by:Patient Risks discussed:Bleeding and infection Alternatives discussed:Delayed treatment Indications: Indications:For Home antibiotics Pre-procedure details: Skin preparation:ChloraPrep Preparation: Patient was prepped and draped in the usual sterile fashion Anesthesia (see MAR for exact dosages): Anesthesia method:Local infiltration Local anesthetic:Lidocaine 1% w/o epi Post-procedure details: Patient tolerance of procedure:Tolerated well, no immediate complications Comments: 4 stateless u/s guided midline placed in this pt per Dr Britt and Dr Stone for home antibiotics ( pt esrd with RIJ tunneled HD cath ) - pt also with history of left arm cancer . U/S guided -one stick - dark red non pulsatile flow noted - wire and cath threaded easily - sterile technique maintained throughout - placed orange arm band on pt and measured around circumference of arm 39 cm and told pt to watch for swelling and pain at site - signs of blood clot - he verbalized understanding IR Tesio Cath Placement US (07/31/2017 1:41 PM) Narrative Performed At PERFORMING RADIOLOGIST: ALISSA Rousseau MD ASSISTANTS: None. ANESTHESIA TYPE: Moderate sedation was administered by the procedure nurse and monitored by the procedure physician for a total ytln-zn-aayy sedation time of 15 minutes. Lidocaine 1% and lidocaine 1% with epinephrine were used for local anesthetic. ANTIBIOTICS: None. PRE PROCEDURE DIAGNOSIS: End-stage renal disease requiring hemodialysis. POST PROCEDURE DIAGNOSIS: Status post tunneled rightinternal jugularvein hemodialysis catheter placement. PROCEDURE: Placement of a tunneled rightright vein hemodialysis catheter. TECHNIQUE: Written informed consent was obtained prior to the procedure. All elements of maximal sterile barrier technique were followed. The patient's rightneck and upper chestwere sterilely prepared and draped in the routine manner. Under ultrasound guidance, documentation of vessel patency, needle access with permanent recording, and reporting are performed followed by placement of a sheath in the right internal jugular vein. Using real ultrasound guidance, lidocaine 1% was administered to the overlying soft tissues via 25-gauge needle. Again, using real-time ultrasound guidance, a 21-gauge micropuncture needle was advanced successfully into the right internal jugular vein. A 0.018 inch guidewire was advanced centrally through the needle under fluoroscopy. The needle was removed and a micropuncture sheath system was then placed.The inner dilator and guidewire were then removed, and a 0.035 inch J-wire was advanced through the micropuncture sheath and successfully into the inferior vena cava. The right infraclavicular fossa was anesthetized with lidocaine 1% mixed with epinephrine. A skin incision was made, and a tunneling device was used to pass the tunneled hemodialysis catheter from the skin entry site to the venotomy site. Attention was then returned to the venotomy site. The tract was then sequentially dilated, and a 23 cm long tip to cuff GlidePath tunneled hemodialysis catheter was then deployed through a peel-away sheath. The catheter tip was placed in the right atrium under fluoroscopic guidance. All ports were tested and demonstrate adequate flow. The catheter was secured to the skin using 2-0 silk suture. The small venotomy incision was closed with 3-0 Vicryl suture and Dermabond. The patient tolerated the procedure well. RADIATION DOSE: Ka,r=25.5 mGy COMPLICATIONS: None. SPECIMENS REMOVED: None. ESTIMATED BLOOD LOSS: Less than 2 mL. BLOOD PRODUCTS ADMINISTERED: None. GRAFTS/IMPLANTS: As described in the above report. IMPRESSION: Successful fluoroscopic-guided placement of a 23 cm long tip to cuff GlidePath tunneled hemodialysis catheter via the rightinternal jugularvein. The catheter tip lies at the superior cavoatrial junction and is ready for use. [facility]-[id number] Procedure Note Hm Interface, Radiology Results Incoming - 07/31/2017 2:43 PM SALVAGE ENGINEER PERFORMING RADIOLOGIST: Apurva Rousseau MD ASSISTANTS: None. ANESTHESIA TYPE: Moderate sedation was administered by the procedure nurse and monitored by the procedure physician for a total ecbz-cj-muih sedation time of 15 minutes. Lidocaine 1% and lidocaine 1% with epinephrine were used for local anesthetic. ANTIBIOTICS: None. PRE PROCEDURE DIAGNOSIS: End-stage renal disease requiring hemodialysis. POST PROCEDURE DIAGNOSIS: Status post tunneled right internal jugular vein hemodialysis catheter placement. PROCEDURE: Placement of a tunneled right right vein hemodialysis catheter. TECHNIQUE: Written informed consent was obtained prior to the procedure. All elements of maximal sterile barrier technique were followed. The patient's right neck and upper chest were sterilely prepared and draped in the routine manner. Under ultrasound guidance, documentation of vessel patency, needle access with permanent recording, and reporting are performed followed by placement of a sheath in the right internal jugular vein. Using real ultrasound guidance, lidocaine 1% was administered to the overlying soft tissues via 25-gauge needle. Again, using real-time ultrasound guidance, a 21-gauge micropuncture needle was advanced successfully into the right internal jugular vein. A 0.018 inch guidewire was advanced centrally through the needle under fluoroscopy. The needle was removed and a micropuncture sheath system was then placed. The inner dilator and guidewire were then removed, and a 0.035 inch J-wire was advanced through the micropuncture sheath and successfully into the inferior vena cava. The right infraclavicular fossa was anesthetized with lidocaine 1% mixed with epinephrine. A skin incision was made, and a tunneling device was used to pass the tunneled hemodialysis catheter from the skin entry site to the venotomy site. Attention was then returned to the venotomy site. The tract was then sequentially dilated, and a 23 cm long tip to cuff GlidePath tunneled hemodialysis catheter was then deployed through a peel-away sheath. The catheter tip was placed in the right atrium under fluoroscopic guidance. All ports were tested and demonstrate adequate flow. The catheter was secured to the skin using 2-0 silk suture. The small venotomy incision was closed with 3-0 Vicryl suture and Dermabond. The patient tolerated the procedure well. RADIATION DOSE: Ka,r=25.5 mGy COMPLICATIONS: None. SPECIMENS REMOVED: None. ESTIMATED BLOOD LOSS: Less than 2 mL. BLOOD PRODUCTS ADMINISTERED: None. GRAFTS/IMPLANTS: As described in the above report. IMPRESSION: Successful fluoroscopic-guided placement of a 23 cm long tip to cuff GlidePath tunneled hemodialysis catheter via the right internal jugular vein. The catheter tip lies at the superior cavoatrial junction and is ready for use. [id number] Performing Organization Address City/State/Zipcode Phone Number ALISSA NASH [address] [place] [address] IR Tunneled Dialysis Cath Placement (07/31/2017 1:41 PM) Narrative Performed At PERFORMING RADIOLOGIST: ALISSA Rousseau MD ASSISTANTS: None. ANESTHESIA TYPE: Moderate sedation was administered by the procedure nurse and monitored by the procedure physician for a total xgml-ef-vflm sedation time of 15 minutes. Lidocaine 1% and lidocaine 1% with epinephrine were used for local anesthetic. ANTIBIOTICS: None. PRE PROCEDURE DIAGNOSIS: End-stage renal disease requiring hemodialysis. POST PROCEDURE DIAGNOSIS: Status post tunneled rightinternal jugularvein hemodialysis catheter placement. PROCEDURE: Placement of a tunneled rightright vein hemodialysis catheter. TECHNIQUE: Written informed consent was obtained prior to the procedure. All elements of maximal sterile barrier technique were followed. The patient's rightneck and upper chestwere sterilely prepared and draped in the routine manner. Under ultrasound guidance, documentation of vessel patency, needle access with permanent recording, and reporting are performed followed by placement of a sheath in the right internal jugular vein. Using real ultrasound guidance, lidocaine 1% was administered to the overlying soft tissues via 25-gauge needle. Again, using real-time ultrasound guidance, a 21-gauge micropuncture needle was advanced successfully into the right internal jugular vein. A 0.018 inch guidewire was advanced centrally through the needle under fluoroscopy. The needle was removed and a micropuncture sheath system was then placed.The inner dilator and guidewire were then removed, and a 0.035 inch J-wire was advanced through the micropuncture sheath and successfully into the inferior vena cava. The right infraclavicular fossa was anesthetized with lidocaine 1% mixed with epinephrine. A skin incision was made, and a tunneling device was used to pass the tunneled hemodialysis catheter from the skin entry site to the venotomy site. Attention was then returned to the venotomy site. The tract was then sequentially dilated, and a 23 cm long tip to cuff GlidePath tunneled hemodialysis catheter was then deployed through a peel-away sheath. The catheter tip was placed in the right atrium under fluoroscopic guidance. All ports were tested and demonstrate adequate flow. The catheter was secured to the skin using 2-0 silk suture. The small venotomy incision was closed with 3-0 Vicryl suture and Dermabond. The patient tolerated the procedure well. RADIATION DOSE: Ka,r=25.5 mGy COMPLICATIONS: None. SPECIMENS REMOVED: None. ESTIMATED BLOOD LOSS: Less than 2 mL. BLOOD PRODUCTS ADMINISTERED: None. GRAFTS/IMPLANTS: As described in the above report. IMPRESSION: Successful fluoroscopic-guided placement of a 23 cm long tip to cuff GlidePath tunneled hemodialysis catheter via the rightinternal jugularvein. The catheter tip lies at the superior cavoatrial junction and is ready for use. [facility]-[id number] Procedure Note Hm Interface, Radiology Results Incoming - 07/31/2017 2:42 PM SALVAGE ENGINEER PERFORMING RADIOLOGIST: Apurva Rousseau MD ASSISTANTS: None. ANESTHESIA TYPE: Moderate sedation was administered by the procedure nurse and monitored by the procedure physician for a total mojb-bk-fhow sedation time of 15 minutes. Lidocaine 1% and lidocaine 1% with epinephrine were used for local anesthetic. ANTIBIOTICS: None. PRE PROCEDURE DIAGNOSIS: End-stage renal disease requiring hemodialysis. POST PROCEDURE DIAGNOSIS: Status post tunneled right internal jugular vein hemodialysis catheter placement. PROCEDURE: Placement of a tunneled right right vein hemodialysis catheter. TECHNIQUE: Written informed consent was obtained prior to the procedure. All elements of maximal sterile barrier technique were followed. The patient's right neck and upper chest were sterilely prepared and draped in the routine manner. Under ultrasound guidance, documentation of vessel patency, needle access with permanent recording, and reporting are performed followed by placement of a sheath in the right internal jugular vein. Using real ultrasound guidance, lidocaine 1% was administered to the overlying soft tissues via 25-gauge needle. Again, using real-time ultrasound guidance, a 21-gauge micropuncture needle was advanced successfully into the right internal jugular vein. A 0.018 inch guidewire was advanced centrally through the needle under fluoroscopy. The needle was removed and a micropuncture sheath system was then placed. The inner dilator and guidewire were then removed, and a 0.035 inch J-wire was advanced through the micropuncture sheath and successfully into the inferior vena cava. The right infraclavicular fossa was anesthetized with lidocaine 1% mixed with epinephrine. A skin incision was made, and a tunneling device was used to pass the tunneled hemodialysis catheter from the skin entry site to the venotomy site. Attention was then returned to the venotomy site. The tract was then sequentially dilated, and a 23 cm long tip to cuff GlidePath tunneled hemodialysis catheter was then deployed through a peel-away sheath. The catheter tip was placed in the right atrium under fluoroscopic guidance. All ports were tested and demonstrate adequate flow. The catheter was secured to the skin using 2-0 silk suture. The small venotomy incision was closed with 3-0 Vicryl suture and Dermabond. The patient tolerated the procedure well. RADIATION DOSE: Ka,r=25.5 mGy COMPLICATIONS: None. SPECIMENS REMOVED: None. ESTIMATED BLOOD LOSS: Less than 2 mL. BLOOD PRODUCTS ADMINISTERED: None. GRAFTS/IMPLANTS: As described in the above report. IMPRESSION: Successful fluoroscopic-guided placement of a 23 cm long tip to cuff GlidePath tunneled hemodialysis catheter via the right internal jugular vein. The catheter tip lies at the superior cavoatrial junction and is ready for use. [facility]-[id number] Performing Organization Address [facility]il Phone Number [facility] [address] [place] [address] Type and screen (07/30/2017 5:30 AM) ABO grouping A [facility] DEPARTMENT OF PATHOLOGY AND GENOMIC MEDICINE Rh type POS [facility] DEPARTMENT OF PATHOLOGY AND GENOMIC MEDICINE Antibody screen (gel) NEG [facility] DEPARTMENT OF PATHOLOGY AND GENOMIC MEDICINE Specimen Blood Performing Organization Address [facility] Phone Number [facility] DEPARTMENT OF PATHOLOGY [address] [facility] [place] [address] AND QFPay MEDICINE Vancomycin level, random (07/26/2017 1:25 PM) Vancomycin, random 24.0 ug/mL [facility] DEPARTMENT OF Comment: PATHOLOGY AND GENOMIC Therapeutic Ranges: MEDICINE Peak30.0 - 40.0 ug/mL Ioyrlc85.0 - 20.0 ug/mL Specimen Blood Performing Organization Address [facility] Phone Number [facility] DEPARTMENT OF PATHOLOGY [address] [facility] [place] [address] AND [employer]FPay [facility] Lipase level (07/26/2017 6:42 AM)Only the most recent of2 resultswithin the time period is included. Lipase 24 13 - 60 U/L [facility] DEPARTMENT OF PATHOLOGY AND GENOMIC MEDICINE Specimen Plasma specimen Performing Organization Address City/[facility]/Zipcode Phone Number [facility] DEPARTMENT OF PATHOLOGY [id number] [place] [address]. [place] [address] AND [employer]FPay [facility] Body fluid consult (07/25/2017 9:50 PM) Body fluid consult Footnote [facility] DEPARTMENT OF Comment: PATHOLOGY AND GENOMIC Acute inflammation.Reactive mesothelial cells. MEDICINE H/O end stage kidney disease.Slide reviewed by 1/04/201712 :57 c.u Specimen Fluid Performing Organization Address [facility] Centercode Phone Number [facility] DEPARTMENT OF PATHOLOGY [address] [facility] [place] [address] AND [employer]FPay [facility] Aerobic culture (07/25/2017 9:50 PM)Only the most recent of2 resultswithin the time period is included. Aerobic culture isolate Acinetobacter species [facility] DEPARTMENT OF Rare PATHOLOGY AND GENOMIC susceptibility to [facility] MEDICINE This organism is NOT a carbapenemase producing organism. This organism is NOT a carbapenemase producing organism. (A) Comment: Specimen Information Specimen Source: Peritoneal fluid Specimen Site: Not otherwise specified Specimen Peritoneal fluid - Not otherwise specified Organism Antibiotic Method Susceptibility Acinetobacter species Amikacin RETA <=4 mcg/mL: Susceptible Acinetobacter species Ampicillin/Sulbactam RETA 2/1 mcg/mL: Susceptible Acinetobacter species Aztreonam RETA >16 mcg/mL: Resistant Acinetobacter species Ceftazidime RETA >16 mcg/mL: Resistant Acinetobacter species Ceftriaxone RETA 4 mcg/mL: Susceptible Acinetobacter species Ciprofloxacin RETA <=0.5 mcg/mL: Susceptible Acinetobacter species Gentamicin RETA 2 mcg/mL: Susceptible Acinetobacter species Imipenem RETA <=0.25 mcg/mL: Susceptible Acinetobacter species Levofloxacin RETA <=1 mcg/mL: Susceptible Acinetobacter species Minocycline RETA <=1 mcg/mL: Susceptible Acinetobacter species Piperacillin/Tazobactam RETA 16/4 mcg/mL: Susceptible Acinetobacter species Tobramycin RETA 1 mcg/mL: Susceptible Acinetobacter species Trimethoprim/Sulfamethoxazol RETA <=0.5/9.5 mcg/mL: e Susceptible Acinetobacter species Cefipime RETA 16 mcg/mL: Resistant Performing Organization Address [facility]/Zipcode Phone Number [facility] DEPARTMENT OF PATHOLOGY AND [address] [place] [phone] GENOMIC MEDICINE Gram stain (07/25/2017 9:50 PM)Only the most recent of2 resultswithin the time period is included. Gram stain isolate Many WBC's [facility] DEPARTMENT OF PATHOLOGY No organisms seen AND GENOMIC MEDICINE Comment: Specimen Information Specimen Source: Peritoneal fluid Specimen Site: Not otherwise specified Specimen Peritoneal fluid - Not otherwise specified Performing Organization Address City/[facility] Cent[facility]ode Phone Number [facility] DEPARTMENT OF PATHOLOGY AND [address] [place] [phone] [place] [address] MEDICINE Anaerobic culture (07/25/2017 9:50 PM)Only the most recent of2 resultswithin the time period is included. Anaerobic culture No anaerobic organisms isolated. [facility] DEPARTMENT OF isolate Comment: PATHOLOGY AND GENOMIC Specimen Information MEDICINE Specimen Source: Peritoneal fluid Specimen Site: Not otherwise specified Specimen Peritoneal fluid - Not otherwise specified Performing Organization Address [facility] Centercode Phone Number [facility] DEPARTMENT OF PATHOLOGY AND [address] [place] [phone] [place] [address] Cell count and differential, body fluid (07/25/2017 9:50 PM)Only the most recent of2 resultswithin the time period is included. [facility] fluid type Peritoneal [facility] DEPARTMENT OF PATHOLOGY AND GENOMIC MEDICINE Color, fluid Yellow [facility] DEPARTMENT OF PATHOLOGY AND GENOMIC MEDICINE Appearance, fluid Cloudy (A) [facility] DEPARTMENT OF PATHOLOGY AND GENOMIC MEDICINE RBC, fluid SEE COMMENTComment: 1+ (0 - /CMM [facility] DEPARTMENT 500 RBC/CMM) PATHOLOGY AND GENOMIC MEDICINE Nucleated cells, fluid 22,800 /CMM [facility] DEPARTMENT OF PATHOLOGY AND GENOMIC MEDICINE Fluid mononuclear cell See Diff [facility] DEPARTMENT OF PATHOLOGY AND GENOMIC MEDICINE Neutrophils, fluid 91 % [facility] DEPARTMENT OF Comment: PATHOLOGY AND GENOMIC Final results of rare intracellular and extracellular bacteria seen called to MEDICINE and read back by BEAR DOE 07/26/2017 03:55 AR Lymphocytes, fluid 4 % [facility] DEPARTMENT OF PATHOLOGY AND GENOMIC MEDICINE Mesothelial cells, fluid 1 % [facility] DEPARTMENT OF PATHOLOGY AND GENOMIC MEDICINE Macrophages, fluid 4 % [facility] DEPARTMENT OF PATHOLOGY AND GENOMIC MEDICINE Specimen Fluid Performing Organization Address City/State/Zipcode Phone Number [facility] DEPARTMENT OF PATHOLOGY [address] [place] [address] Abdomen Pelvis Wo Contrast (07/25/2017 4:20 AM) Narrative Performed At Examination:CT ABDOMEN PELVIS WO CONTRAST RADIANT Clinical History: diffuse APperitoneal dilaysis Comparison: 10/12/2015 Findings: CT scans are performed using radiation dose reduction techniques.Technical factors are evaluated and adjusted to ensure appropriate moderation of exposure.Automated dose management technology is applied to adjust radiation exposure while achieving a diagnostic quality image. CT scan of the abdomen and pelvis was performed without intravenous contrast. The liver, spleen, pancreas, and adrenal glands are unremarkable. The patient is status post cholecystectomy. There is a left adrenal cystic low density measuring 3.9 x 3.4 cm. It is unchanged. There is some small calcification at the rim of this cystic structure. The right adrenal gland is unremarkable. Bilateral atrophic in stage kidneys are noted. There is moderate ascites noted throughout the abdomen and pelvis including around the liver and spleen. Small umbilical hernia is noted which contains only fat. There is some adjacent fat stranding and focal density in the subcutaneous soft tissue which has decreased compared to the prior study. The appendix is not visualized. No bowel thickening or fat stranding is seen. No bowel dilatation is seen. Percutaneous peritoneal dialysis catheter is noted. No free air is seen. Urinary bladder is not well-distended and not well evaluated. The visualized lung bases are clear. IMPRESSION: 1. Moderate ascites probably related to peritoneal dialysis. Clinical correlation is recommended. 2. Small umbilical hernia contains only fat. 3. Left adrenal cyst with rim calcification is stable. [facility]-[id number] Procedure Note Interface, Radiology Results Incoming - 07/25/2017 4:34 AM SALVAGE ENGINEER Examination: CT ABDOMEN PELVIS WO CONTRAST Clinical History: diffuse AP peritoneal dilaysis Comparison: 10/12/2015 Findings: CT scans are performed using radiation dose reduction techniques. Technical factors are evaluated and adjusted to ensure appropriate moderation of exposure. Automated dose management technology is applied to adjust radiation exposure while achieving a diagnostic quality image. CT scan of the abdomen and pelvis was performed without intravenous contrast. The liver, spleen, pancreas, and adrenal glands are unremarkable. The patient is status post cholecystectomy. There is a left adrenal cystic low density measuring 3.9 x 3.4 cm. It is unchanged. There is some small calcification at the rim of this cystic structure. The right adrenal gland is unremarkable. Bilateral atrophic in stage kidneys are noted. There is moderate ascites noted throughout the abdomen and pelvis including around the liver and spleen. Small umbilical hernia is noted which contains only fat. There is some adjacent fat stranding and focal density in the subcutaneous soft tissue which has decreased compared to the prior study. The appendix is not visualized. No bowel thickening or fat stranding is seen. No bowel dilatation is seen. Percutaneous peritoneal dialysis catheter is noted. No free air is seen. Urinary bladder is not well-distended and not well evaluated. The visualized lung bases are clear. IMPRESSION: 1. Moderate ascites probably related to peritoneal dialysis. Clinical correlation is recommended. 2. Small umbilical hernia contains only fat. 3. Left adrenal cyst with rim calcification is stable. [facility]-[id number] Performing Organization Address City/[facility]/Zipcode Phone Number [facility] [address] [place] [address] Lactic acid level (07/25/2017 4:00 AM)Only the most recent of2 resultswithin the time period is included. Lactic acid 2.4 (H) 0.5 - 2.2 mmol/L [facility] DEPARTMENT OF PATHOLOGY AND GENOMIC MEDICINE Specimen Plasma specimen Performing Organization Address City/State/Zipcode Phone Number [facility] DEPARTMENT OF PATHOLOGY [address] [place] [address] AND GENOMIC MEDICINE XR Abdomen Acute Inc Chest (07/25/2017 2:16 AM) Narrative Performed At EXAM: [facility]: ABDOMINAL PAIN COMPARISON:None. IMPRESSION: It is important to note that complete evaluation is suboptimal due to decreased technical penetration on the current images. Taking this into consideration, the bowel gas pattern is nondilated, nonobstructive. Calcified granuloma identified left midlung. The lungs are otherwise clear. No pleural effusion or pneumothorax. The cardiomediastinal silhouette is normal. Calcifications are identified within the aortic arch. Cholecystectomy clips noted overlying the right upper quadrant. Degenerative changes of the spine and bilateral hips noted. [facility]-[id number] Procedure Note Interface, Radiology Results Incoming - 07/25/2017 2:23 AM SALVAGE ENGINEER EXAM: XR ABDOMEN ACUTE INC CHEST CLINICAL HISTORY: ABDOMINAL PAIN COMPARISON: None. IMPRESSION: It is important to note that complete evaluation is suboptimal due to decreased technical penetration on the current images. Taking this into consideration, the bowel gas pattern is nondilated, nonobstructive. Calcified granuloma identified left midlung. The lungs are otherwise clear. No pleural effusion or pneumothorax. The cardiomediastinal silhouette is normal. Calcifications are identified within the aortic arch. Cholecystectomy clips noted overlying the right upper quadrant. Degenerative changes of the spine and bilateral hips noted. [facility]-[id number] Performing Organization Address City/State/Zipcode Phone Number [facility] [address] [place] [address] CT Head Wo Contrast (07/25/2017 2:15 AM) Narrative Performed At EXAMINATION: CT HEAD WO CONTRAST [facility] CLINICAL HISTORY: falling COMPARISON:CT 03/31/2016. TECHNIQUE: Noncontrast enhanced images of the brain were obtained from the skull base to the vertex. Both soft tissue and bone reconstruction algorithms were performed. CT scans are performed using radiation dose reduction techniques (iterative reconstruction and/or automated exposure control). Technical factors are evaluated and adjusted to ensure appropriate moderation of exposure. Automated dose management technology is applied to adjust radiation exposure while achieving a diagnostic quality image. FINDINGS: Mild generalized brain parenchymal volume loss. Nonspecific hypoattenuation of the supratentorial white matter, likely chronic microangiopathic changes. Mild cerebrovascular calcifications. The brain parenchyma is otherwise unremarkable. The natarajan-white matter differentiation is preserved. No evidence of acute intra or extra-axial hemorrhage, mass, mass effect or acute territorial infarction. There is no acute hydrocephalus. Basal cisterns are patent. No acute soft tissue hematoma or laceration. No skull fractures or aggressive bony lesions. Mucous retention cysts in the maxillary sinuses. Mastoid air cells are clear. Orbits are normal. IMPRESSION: No acute intracranial abnormality identified. [facility]-[id number] Procedure Note Interface, Radiology Results Incoming - 07/25/2017 2:20 AM SALVAGE ENGINEER EXAMINATION: CT HEAD WO CONTRAST CLINICAL HISTORY: falling COMPARISON: CT 03/31/2016. TECHNIQUE: Noncontrast enhanced images of the brain were obtained from the skull base to the vertex. Both soft tissue and bone reconstruction algorithms were performed. CT scans are performed using radiation dose reduction techniques (iterative reconstruction and/or automated exposure control). Technical factors are evaluated and adjusted to ensure appropriate moderation of exposure. Automated dose management technology is applied to adjust radiation exposure while achieving a diagnostic quality image. FINDINGS: Mild generalized brain parenchymal volume loss. Nonspecific hypoattenuation of the supratentorial white matter, likely chronic microangiopathic changes. Mild cerebrovascular calcifications. The brain parenchyma is otherwise unremarkable. The natarajan-white matter differentiation is preserved. No evidence of acute intra or extra-axial hemorrhage, mass, mass effect or acute territorial infarction. There is no acute hydrocephalus. Basal cisterns are patent. No acute soft tissue hematoma or laceration. No skull fractures or aggressive bony lesions. Mucous retention cysts in the maxillary sinuses. Mastoid air cells are clear. Orbits are normal. IMPRESSION: No acute intracranial abnormality identified. [facility]-[id number] Performing Organization Address [facility] Cent[facility]ode Phone Number [facility] [address] [place] [address] Blood culture, aerobic & anaerobic (07/25/2017 1:25 AM)Only the most recent of2 resultswithin the time period is included. Blood culture isolate No growth after 5 days of incubation. [facility] DEPARTMENT OF Comment: PATHOLOGY AND GENOMIC Specimen Information MEDICINE Specimen Source: Blood Specimen Site: Hand, right Specimen Blood - Hand, right Performing Organization Address [facility] Phone Number [facility] DEPARTMENT OF PATHOLOGY AND [address] [place] [address] [facility] Creatine kinase, total (CPK) (07/25/2017 1:20 AM) Creatine kinase 247 39 - 308 U/L [facility] DEPARTMENT OF PATHOLOGY AND GENOMIC MEDICINE Specimen Plasma specimen Performing Organization Address [facility] Phone Number [facility] DEPARTMENT OF PATHOLOGY [address] [facility] [place] [address] AND GENOMIC [facility] Surgical pathology request (05/26/2017 11:16 AM) [facility] DEPARTMENT OF PATHOLOGY AND GENOMIC MEDICINE Surgical pathology report See link below for PDF [facility] DEPARTMENT OF Lab Report PATHOLOGY AND GENOMIC MEDICINE Performing Organization Address [facility] Phone Number [facility] DEPARTMENT OF PATHOLOGY [address] [facility] [place] [address] AND QFPay MEDICINE POC panel 4 (05/26/2017 7:55 AM)Only the most recent of2 resultswithin the time period is included. POC sodium 133 (L) 135 - 148 meq/L [facility] DEPARTMENT OF PATHOLOGY AND GENOMIC MEDICINE POC potassium 2.9 (LL)Comment: RN 3.5 - 5.0 meq/L [facility] DEPARTMENT OF NOTIFIED PATHOLOGY AND GENOMIC MEDICINE POC hematocrit 33 (L) 41 - 51 % [facility] DEPARTMENT OF PATHOLOGY AND GENOMIC MEDICINE POC glucose 160 (H) 65 - 99 mg/dL [facility] DEPARTMENT OF PATHOLOGY AND GENOMIC MEDICINE POC hemoglobin 11.2 (L) 14.0 - 18.0 g/dL [facility] DEPARTMENT OF PATHOLOGY AND GENOMIC MEDICINE Specimen Blood Performing Organization Address City/State/Zipcode Phone Number [facility] DEPARTMENT OF PATHOLOGY [address] [place] [address] AND GENOMIC MEDICINE Ambulatory referral to Gastroenterology (04/12/2017 9:40 AM) Narrative Performed At after 03/26/2017 Insurance Payer Benefit Plan / Group Subscriber ID Type Phone Address MEDICARE MEDICARE PART A AND B xxxxxxxxxx Medicare [place], [place] AETNA AETNA HMO,POS,EPO, MC/EC xxxxxxxxxx HMO [employer] [facility] Transplant Self 1955 Home: [phone] [place] [address]
[2018-03-27] MEDS ORDERED: LEVALBUTEROL 1.25 MG/3 ML NEB ONE (15:55)
[2018-03-27 16:03] LABS: Absolute Lymphocytes (CBC) 0.3 K/uL (0.7-4.9); Absolute Monocytes 0.4 K/uL (0.1-1.3); Basophils % 0.3 % (0-1.3); Hematocrit 35.8 % (39.6-49.0); Lymphocytes % 3.8 % (15.3-44.8); MCH 31.6 pg (27.0-35.0); MCV 95.6 fL (80-100); MPV 7.8 fL (7.6-11.3); Monocytes % 4.7 % (3.3-12.3); RBC Red Blood Cell Count 3.75 M/uL (4.33-5.43)
[2018-03-27 16:06] LABS: Protime INR 1.06
[2018-03-27 16:30] LABS: Urine White Blood Cell Casts OK
[2018-03-27 16:31] LABS: Blood Morphology Comment NOT SEEN (NOT SEEN); Platelet Estimate ADEQ
[2018-03-27 16:35] LABS: Albumin 3.4 g/dL (3.4-5.0); Bilirubin Direct 0.2 mg/dL (0-0.2); Bilirubin Total 0.5 mg/dL (0.2-1.0); Protein, Total 7.6 g/dL (6.4-8.2)
--- NOTE | 2018-03-27 16:37 | RAD REPORT ---
EXAM DESCRIPTION: RAD - Chest Single View - 03/27/2018 4:27 pm CLINICAL HISTORY: DYSPNEA Chest pain. COMPARISON: No comparisons FINDINGS: Portable technique limits examination quality. Moderate-sized area of consolidation is seen in the left mid lung most likely representing pneumonia. Mild interstitial pulmonary edema is seen. The heart is moderately enlarged in size. Right-sided tomasz ous catheter tip in SVC. No displaced fractures.Hardware is present in the lower cervical spine. IMPRESSION: Moderate area of consolidation in the left mid lung most compatible with pneumonia.
[2018-03-27 16:39] LABS: Potassium 7.5 mmol/L (3.5-5.1)
[2018-03-27] MEDS ORDERED: INSULIN -REGULAR HUMAN 50 UNIT/0.5 ML ML ONE (17:00)
[2018-03-27] MEDS ORDERED: AZITHROMYCIN IV 500 MG in NA CHLORIDE 0.9% 250 ML IVPB ONE (17:00)
[2018-03-27] MEDS ORDERED: CALCIUM GLUCONATE 1gm/100 ML NS (4.65 mEq/100mL) IV ONE ×2 (17:00)
[2018-03-27] MEDS ORDERED: D50W 25 GM/50 ML SYRINGE IV ONE (17:01)
[2018-03-27] MEDS ORDERED: ALBUTEROL 2.5 MG/3 ML NEB SOL ONE (17:01)
[2018-03-27] MEDS ORDERED: SOD POLYSTYREN SUL 15 GM/60 ML UCUP ONE ×2 (17:01→17:08)
[2018-03-27] MEDS ORDERED: CEFTRIAXONE/SWI 1gm 1 GM/10 ML SYR ONE (17:02)
[2018-03-27] MEDS ORDERED: NITROGLYCERIN 0.4 MG/TAB SL ONE (17:28)
--- NOTE | 2018-03-27 18:25 | EDPHYS ---
Physician Documentation [facility] Name: Roro Willard Age: 63 yrs Sex: Male : 1955 Arrival Date: 03/27/2018 Time: 15:03 Bed 19 Private MD: out of town, doctor ED Physician Jose Armando Montoya HPI: 03/27 15:41 This 63 yrs old Male presents to ER via Wheelchair with complaints of jr8 Shortness Of Breath, High Blood Pressure. 15:41 The patient has shortness of breath at rest. Onset: The symptoms/episode began/occurred jr8 acutely, last night. Duration: The symptoms are continuous. The patient's shortness of breath is aggravated by talking, walking. Associated signs and symptoms: The patient has no apparent associated signs or symptoms. Severity of symptoms: At their worst the symptoms were moderate in the emergency department the symptoms are unchanged. The patient has not experienced similar symptoms in the past. The patient has not recently seen a physician. Historical: - Allergies: 15:24 No Known Allergies; aj - Home Meds: 15:24 allopurinol 100 mg Oral tab 1 tab 3 times per day [Active]; aspirin 325 mg Oral tab 1 aj tab once daily [Active]; clonidine HCl 0.1 mg Oral tab 1 tab once daily [Active]; Pepcid 20 mg Oral tab 1 tab once daily [Active]; Lexapro 10 mg Oral tab 1 tab once daily [Active]; gabapentin 100 mg oral cap 3 caps 3 times per day [Active]; levothyroxine 75 mcg tab 1 tab once daily [Active]; pravastatin 10 mg oral tab 1 tab every other day [Active]; Zyrtec Oral [Active]; calcitriol 0.25 mcg oral cap 1 cap [Active]; Renvela 800 mg oral tab 2 tabs 3 times per day [Active]; Hydrocodone-Acetaminophen Oral [Active]; donepezil oral oral [Active]; Cymbalta oral oral [Active]; - PMHx: 15:24 ESRD; Dialysis; Hypertension; Hyperlipidemia; Myocardial infarction; Pericardial aj effusion; - PSHx: 15:24 Cholecystectomy; aj - Immunization history:: Adult Immunizations up to date. - Social history:: Smoking status: Patient/guardian denies using tobacco. - Ebola Screening: : Patient negative for fever greater than or equal to 101.5 degrees Fahrenheit, and additional compatible Ebola Virus Disease symptoms Patient denies exposure to infectious person Patient denies travel to an Ebola-affected area in the 21 days before illness onset No symptoms or risks identified at this time. ROS: 15:41 Eyes: Negative for injury, pain, redness, and discharge, ENT: Negative for injury, jr8 pain, and discharge, Neck: Negative for injury, pain, and swelling, Cardiovascular: Negative for chest pain, palpitations, and edema, Abdomen/GI: Negative for abdominal pain, nausea, vomiting, diarrhea, and constipation, Back: Negative for injury and pain, MS/Extremity: Negative for injury and deformity, Skin: Negative for injury, rash, and discoloration, Neuro: Negative for headache, weakness, numbness, tingling, and seizure. 15:41 Respiratory: Positive for cough, dyspnea on exertion, orthopnea, shortness of breath, wheezing. Exam: 15:41 Eyes: Pupils equal round and reactive to light, extra-ocular motions intact. Lids and jr8 lashes normal. Conjunctiva and sclera are non-icteric and not injected. Cornea within normal limits. Periorbital areas with no swelling, redness, or edema. ENT: Nares patent. No nasal discharge, no septal abnormalities noted. Tympanic membranes are normal and external auditory canals are clear. Oropharynx with no redness, swelling, or masses, exudates, or evidence of obstruction, uvula midline. Mucous membranes moist. Neck: Trachea midline, no thyromegaly or masses palpated, and no cervical lymphadenopathy. Supple, full range of motion without nuchal rigidity, or vertebral point tenderness. No Meningismus. Abdomen/GI: Soft, non-tender, with normal bowel sounds. No distension or tympany. No guarding or rebound. No evidence of tenderness throughout. Back: No spinal tenderness. No costovertebral tenderness. Full range of motion. Skin: Warm, dry with normal turgor. Normal color with no rashes, no lesions, and no evidence of cellulitis. MS/ Extremity: Pulses equal, no cyanosis. Neurovascular intact. Full, normal range of motion. Neuro: Awake and alert, GCS 15, oriented to person, place, time, and situation. Cranial nerves II-XII grossly intact. Motor strength 5/5 in all extremities. Sensory grossly intact. Cerebellar exam normal. Normal gait. 15:41 Cardiovascular: Rate: tachycardic, Rhythm: irregularly irregular, Pulses: Pulses are 2+ in right radial artery and left radial artery. Heart sounds: S1, normal, S2, normal, Edema: 1+ edema to level of left midcalf, left ankle, right midcalf and right ankle. 15:41 Respiratory: mild respiratory distress is noted, Respirations: labored breathing, tachypnea, Breath sounds: rales, that are mild, are located in both bases, decreased breath sounds, that are mild, are located in both bases, wheezing: expiratory that is mild, is heard diffusely. Vital Signs: 15:24 BP 203 / 83; Pulse 60; Resp 25; Temp 99.2; Pulse Ox 85% on R/A; Weight 119.5 kg; Height aj 6 ft. 0 in. (182.88 cm); 16:07 BP 200 / 95; Pulse 95; Resp 24; Pulse Ox 95% on 100% Nebulizer Mask; ph 17:17 BP 197 / 102; Pulse 106; Resp 22; Pulse Ox 98% on 100% Nebulizer Mask; ph 18:00 BP 185 / 87; Pulse 94; Resp 18; Pulse Ox 95% on 2 lpm NC; ph 19:53 BP 204 / 99; Pulse 92; Resp 19; Pulse Ox 100% on 3 lpm NC; aj 20:20 BP 187 / 90; Pulse 84; Resp 20; Pulse Ox 97% on 3 lpm NC; aj 15:24 Body Mass Index 35.73 (119.50 kg, 182.88 cm) aj MDM: 15:17 Patient medically screened. [facility] 17:08 Data reviewed: vital signs, nurses notes, lab test result(s), EKG, radiologic studies, [facility] plain films, and as a result, I will admit patient. Data interpreted: Pulse oximetry: on room air is 89 %. Interpretation: hypoxia. Counseling: I had a detailed discussion with the patient and/or guardian regarding: the historical points, exam findings, and any diagnostic results supporting the discharge/admit diagnosis, lab results, radiology results. ED course: Patient would like to be transferred to [facility] as most of his physicians are at that facility . 18:23 ED course: [facility] accepted patient . 8 03/27 15:35 Order name: Basic Metabolic Panel; Complete Time: 16:42 03/27 15:35 Order name: CBC with Diff; Complete Time: 16:42 03/27 15:35 Order name: LFT's; Complete Time: 16:42 03/27 15:35 Order name: Magnesium; Complete Time: 16:42 03/27 15:35 Order name: NT PRO-BNP; Complete Time: 16:43 03/27 15:35 Order name: PT-INR; Complete Time: 16:18 03/27 15:35 Order name: Troponin (emerg Dept Use Only); Complete Time: 16:43 03/27 15:35 Order name: XRAY Chest (1 view); Complete Time: 16:43 03/27 16:11 Order name: CBC Smear Scan; Complete Time: 16:43 EDMS 03/27 15:35 Order name: EKG; Complete Time: 15:35 03/27 15:35 Order name: Cardiac monitoring; Complete Time: 15:49 03/27 15:35 Order name: EKG - Nurse/Tech; Complete Time: 15:59 03/27 15:35 Order name: IV Saline Lock; Complete Time: 15:50 03/27 15:35 Order name: Labs collected and sent; Complete Time: 15:50 03/27 15:35 Order name: O2 Per Protocol; Complete Time: 15:50 03/27 15:35 Order name: O2 Sat Monitoring; Complete Time: 15:50 03/27 17:41 Order name: Diet Ada 1800 Braden; Complete Time: 17:42 ph EC:41 Rate is 105 beats/min. Rhythm is irregularly irregular, A fib. Left axis deviation jr8 noted. QRS interval is prolonged at 142 msec. QT interval is normal at 449 msec. No Q waves. T waves are Normal. No ST changes noted. Clinical impression: Atrial Fibrillation. Interpreted by me. Reviewed by me. Administered Medications: 15:59 Drug: Xopenex (3) 1.25 mg Route: Inhalation; ph 19:28 Follow up: Response: No adverse reaction ph 17:05 Drug: Rocephin 1 grams Route: IV; Rate: calculated rate; Site: right antecubital; ph 19:28 Follow up: Response: No adverse reaction; IV Status: Completed infusion ph 17:13 Drug: Calcium Gluconate 1 grams Route: IVPB; Infused Over: 60 mins; Site: right ph antecubital; 19:27 Follow up: Response: No adverse reaction; IV Status: Completed infusion ph 17:15 Drug: Albuterol 2.5 mg Route: Inhalation; ph 17:15 Drug: Kayexalate 45 grams Route: PO; ph 19:24 Follow up: Response: No adverse reaction ph 17:15 Drug: D50W 25 ml Route: IVP; Site: right antecubital; ph 19:24 Follow up: Response: No adverse reaction ph 17:16 Drug: Albuterol 2.5 mg Route: Inhalation; ph 19:28 Follow up: Response: No adverse reaction ph 17:16 Drug: Albuterol 2.5 mg Route: Inhalation; ph 17:36 Drug: Insulin Regular Human 10 units {Co-Signature: rb1 (Dasia Garay RN).} Route: ph IVP; Site: right antecubital; 19:24 Follow up: Response: No adverse reaction ph 17:38 Drug: Zithromax 500 mg Route: IVPB; Infused Over: 1 hrs; Site: right antecubital; ph 19:28 Follow up: Response: No adverse reaction; IV Status: Completed infusion ph 17:41 Drug: Nitroglycerin 0.4 mg Route: Sublingual; ph 19:28 Follow up: Response: No adverse reaction ph 20:12 Drug: Labetalol 10 mg Route: IVP; Infused Over: 2 mins; Site: right antecubital; aj 20:23 Follow up: Response: Blood pressure is lowered aj Disposition: 03/28 06:59 Co-signature as Attending Physician, Jose Armando Montoya MD. rn Disposition: 03/27/18 18:24 Transfer ordered to Other Acute Care Facility. Diagnosis are Pneumonia due to other specified bacteria, Hyperkalemia, Chronic kidney disease (CKD), Hypermagnesemia. - Reason for transfer: Higher level of care. - Accepting physician is Sher Whitehead . - Condition is Fair. - Problem is new. - Symptoms have improved. Signatures: Dispatcher [employer] Saritha Winston RN RN aj Nieto, Roman, MD MD rn Roszak, Josh, ALENA CARVAJAL 8 Marily Willett RN RN ph Dasia Garay RN rb1 Corrections: (The following items were deleted from the chart) 03/27 20:37 18:24 03/27/2018 18:24 Transfer ordered to Other Acute Care Facility. Diagnosis is aj Pneumonia due to other specified bacteria; Hyperkalemia; Chronic kidney disease (CKD); Hypermagnesemia. Reason for transfer: Higher level of care. Accepting physician is Sher Whitehead . Condition is Fair. Problem is new. Symptoms have improved. jr8
--- NOTE | 2018-03-27 18:25 | ER ---
Nurse's Notes [facility] Name: Roro Willard Age: 63 yrs Sex: Male : 1955 Arrival Date: 03/27/2018 Time: 15:03 Bed 19 Private MD: out of town, doctor Diagnosis: Pneumonia due to other specified bacteria;Hyperkalemia;Chronic kidney disease (CKD);Hypermagnesemia Presentation: 03/27 15:17 Presenting complaint: Patient states: SOB that started this morning. Patient vomited aj last night while sleeping. Lips are cyanotic in triage. Transition of care: patient was not received from another setting of care. Onset of symptoms was March 27, 2018. Risk Assessment: Do you want to hurt yourself or someone else? Patient reports no desire to harm self or others. Initial Sepsis Screen: Does the patient meet any 2 criteria? No. Patient's initial sepsis screen is negative. Does the patient have a suspected source of infection? No. Patient's initial sepsis screen is negative. Care prior to arrival: None. 15:17 Method Of Arrival: Wheelchair aj 15:17 Acuity: BOBY 2 aj Triage Assessment: 15:24 General: Appears in no apparent distress. uncomfortable, Behavior is calm, cooperative, aj appropriate for age. Pain: Denies pain. Neuro: Level of Consciousness is awake, alert, obeys commands, Oriented to person, place, time, situation, Appropriate for age. Cardiovascular: Reports nausea, shortness of breath, Capillary refill < 3 seconds in bilateral fingers Patient's skin is warm and dry. Respiratory: Reports shortness of breath at rest on exertion Airway is patent Respiratory effort is even, unlabored, Respiratory pattern is symmetrical, tachypnea Patient's lips and nail beds are cyanotic Onset: The symptoms/episode began/occurred suddenly, the patient has moderate shortness of breath. Derm: Skin is intact, is healthy with good turgor, Skin is pink, warm \T\ dry. normal. Historical: - Allergies: 15:24 No Known Allergies; aj - Home Meds: 15:24 allopurinol 100 mg Oral tab 1 tab 3 times per day [Active]; aspirin 325 mg Oral tab 1 aj tab once daily [Active]; clonidine HCl 0.1 mg Oral tab 1 tab once daily [Active]; Pepcid 20 mg Oral tab 1 tab once daily [Active]; Lexapro 10 mg Oral tab 1 tab once daily [Active]; gabapentin 100 mg oral cap 3 caps 3 times per day [Active]; levothyroxine 75 mcg tab 1 tab once daily [Active]; pravastatin 10 mg oral tab 1 tab every other day [Active]; Zyrtec Oral [Active]; calcitriol 0.25 mcg oral cap 1 cap [Active]; Renvela 800 mg oral tab 2 tabs 3 times per day [Active]; Hydrocodone-Acetaminophen Oral [Active]; donepezil oral oral [Active]; Cymbalta oral oral [Active]; - PMHx: 15:24 ESRD; Dialysis; Hypertension; Hyperlipidemia; Myocardial infarction; Pericardial aj effusion; - PSHx: 15:24 Cholecystectomy; aj - Immunization history:: Adult Immunizations up to date. - Social history:: Smoking status: Patient/guardian denies using tobacco. - Ebola Screening: : Patient negative for fever greater than or equal to 101.5 degrees Fahrenheit, and additional compatible Ebola Virus Disease symptoms Patient denies exposure to infectious person Patient denies travel to an Ebola-affected area in the 21 days before illness onset No symptoms or risks identified at this time. Screenin:02 Abuse screen: Denies threats or abuse. Denies injuries from another. Nutritional ph screening: No deficits noted. Tuberculosis screening: No symptoms or risk factors identified. Fall Risk No fall in past 12 months (0 pts). No secondary diagnosis (0 pts). IV access (20 points). Ambulatory Aid- None/Bed Rest/Nurse Assist (0 pts). Gait- Weak (10 pts.). Mental Status- Oriented to own ability (0 pts). Total Maria Fall Scale indicates Low Risk Score (25-44 pts). Fall prevention measures have been instituted. Side Rails Up X 2 Placed close to Nursing Station Frequent Obs/Assesments occuring Family Present and informed to notify staff if they need to leave bedside As available Patient and Family Educated on Fall Prevention Program and strategies. Assessment: 16:03 General: Appears in no apparent distress. uncomfortable, well groomed, Behavior is ph calm, cooperative, appropriate for age, Denies fever, feeling ill. Pain: Denies pain. Neuro: Level of Consciousness is awake, alert, obeys commands, Oriented to person, place, time, situation. Cardiovascular: Reports fatigue, shortness of breath, Denies chest pain, nausea, vomiting, Capillary refill < 3 seconds in bilateral fingers Patient's skin is warm and dry. Rhythm is atrial fibrillation Dialysis shunt: in the anterior aspect of right upper chest, with no erythema, with no edema. Respiratory: Reports shortness of breath at rest Airway is patent Respiratory effort is labored, with retractions, Respiratory pattern is tachypnea Breath sounds are coarse bilaterally. GI: No signs and/or symptoms were reported involving the gastrointestinal system. Patient currently denies abdominal pain, diarrhea, nausea, vomiting. Derm: Skin is intact, is healthy with good turgor, Skin is pink, warm \T\ dry. Musculoskeletal: Circulation, motion, and sensation intact. Range of motion: intact in all extremities. 16:39 Reassessment: Dr. Stevenson notified of critical lab value, potassium 7.5 and creatinine ss 13.9. 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 ss 17:18 Reassessment: Patient appears in no apparent distress at this time. Patient and/or ph family updated on plan of care and expected duration. Pain level reassessed. Patient is alert, oriented x 3, equal unlabored respirations, skin warm/dry/pink. Pt resting comfortably, denies pain at this time, SO at bedside. 18:00 Reassessment: Patient appears in no apparent distress at this time. Patient and/or ph family updated on plan of care and expected duration. Pain level reassessed. Patient is alert, oriented x 3, equal unlabored respirations, skin warm/dry/pink. Pt assisted to restroom for BM. 18:45 Reassessment: Patient appears in no apparent distress at this time. Patient and/or ph family updated on plan of care and expected duration. Pain level reassessed. Patient is alert, oriented x 3, equal unlabored respirations, skin warm/dry/pink. Pt assisted to bedside commode for BM, large amount of loose stool noted. 19:14 Reassessment: No changes from previously documented assessment. See previous assessment.aj 19:24 Reassessment: Assisted patient o bedside commode, call light in reach. aj Vital Signs: 15:24 BP 203 / 83; Pulse 60; Resp 25; Temp 99.2; Pulse Ox 85% on R/A; Weight 119.5 kg; Height aj 6 ft. 0 in. (182.88 cm); 16:07 BP 200 / 95; Pulse 95; Resp 24; Pulse Ox 95% on 100% Nebulizer Mask; ph 17:17 BP 197 / 102; Pulse 106; Resp 22; Pulse Ox 98% on 100% Nebulizer Mask; ph 18:00 BP 185 / 87; Pulse 94; Resp 18; Pulse Ox 95% on 2 lpm NC; ph 19:53 BP 204 / 99; Pulse 92; Resp 19; Pulse Ox 100% on 3 lpm NC; aj 20:20 BP 187 / 90; Pulse 84; Resp 20; Pulse Ox 97% on 3 lpm NC; aj 15:24 Body Mass Index 35.73 (119.50 kg, 182.88 cm) ED Course: 15:03 Patient arrived in ED. mr 15:03 out of town, doctor is Private Physician. mr 15:17 Anshul Martin PA is PHCP. [id number] 15:17 Jose Armando Montoya MD is Attending Physician. [facility] 15:19 Triage completed. aj 15:24 Marily Willett, RN is Primary Nurse. ph 15:24 Arm band placed on left wrist. Patient placed in an exam room. aj 15:50 EKG done, by director of digital technology. reviewed by Anshul CARVAJAL. [facility] 15:51 Initial lab(s) drawn, by id, sent to lab. Inserted saline lock: 20 gauge in right dh3 antecubital area, using aseptic technique. Blood collected. 16:03 Patient has correct armband on for positive identification. Placed in gown. Bed in low ph position. Call light in reach. Side rails up X2. color television console monitor on. Pulse ox on. NIBP on. Warm blanket given. 16:24 X-ray completed. Portable x-ray completed in exam room. Patient tolerated procedure ml well. 16:27 XRAY Chest (1 view) In Process Unspecified. EDMS 17:05 attempted to initiate transfer to [facility]. Left message with the dawson eb cleaning supervisor to please call back to start the transfer process. 17:29 initiated transfer with Stas at [facility]. Faxed over the patient records eb as requested by Daniela. 18:21 connected the hospitalist from [facility] with Asnhul CARVAJAL for patient transfer eb consultation.. 19:15 Primary Nurse role handed off by Marily Willett, RN aj 19:15 Saritha Bergeron, RN is Primary Nurse. aj 19:53 Report given to Julianne Coto at [facility]. aj 19:53 No provider procedures requiring assistance completed. Patient transferred, IV remains aj in place. intact. Administered Medications: 15:59 Drug: Xopenex (3) 1.25 mg Route: Inhalation; ph 19:28 Follow up: Response: No adverse reaction ph 17:05 Drug: Rocephin 1 grams Route: IV; Rate: calculated rate; Site: right antecubital; ph 19:28 Follow up: Response: No adverse reaction; IV Status: Completed infusion ph 17:13 Drug: Calcium Gluconate 1 grams Route: IVPB; Infused Over: 60 mins; Site: right ph antecubital; 19:27 Follow up: Response: No adverse reaction; IV Status: Completed infusion ph 17:15 Drug: Albuterol 2.5 mg Route: Inhalation; ph 17:15 Drug: Kayexalate 45 grams Route: PO; ph 19:24 Follow up: Response: No adverse reaction ph 17:15 Drug: D50W 25 ml Route: IVP; Site: right antecubital; ph 19:24 Follow up: Response: No adverse reaction ph 17:16 Drug: Albuterol 2.5 mg Route: Inhalation; ph 19:28 Follow up: Response: No adverse reaction ph 17:16 Drug: Albuterol 2.5 mg Route: Inhalation; ph 17:36 Drug: Insulin Regular Human 10 units {Co-Signature: rb1 (Dasia Garay RN).} Route: ph IVP; Site: right antecubital; 19:24 Follow up: Response: No adverse reaction ph 17:38 Drug: Zithromax 500 mg Route: IVPB; Infused Over: 1 hrs; Site: right antecubital; ph 19:28 Follow up: Response: No adverse reaction; IV Status: Completed infusion ph 17:41 Drug: Nitroglycerin 0.4 mg Route: Sublingual; ph 19:28 Follow up: Response: No adverse reaction ph 20:12 Drug: Labetalol 10 mg Route: IVP; Infused Over: 2 mins; Site: right antecubital; aj 20:23 Follow up: Response: Blood pressure is lowered jessi Outcome: 18:24 ER care complete, transfer ordered by MD. zheng 19:53 Transferred by ground EMS to [facility], Transfer form completed. X-rays aj sent w/ patient. 19:53 Condition: stable 19:53 Instructed on the need for transfer. 20:37 Patient left the ED. jessi Signatures: Dispatcher [employer] EDMS Saritha Bergeron RN RN Chelo Overton mr Israel, Gissell Payan RN RN ss Roszak, Josh, PA PA jrMarily Bruno RN RN Sammy, Lashawn 3 Regla Gallego Shakira 3 Dasia Garay RN rb1 Corrections: (The following items were deleted from the chart) 20:20 19:53 BP 204 / 99; Pulse 92bpm; Resp 19bpm; Pulse Ox 100% RA; aj aj
[2018-03-27] MEDS ORDERED: LABETALOL 20 MG/4ML SYRINGE IV ONE (20:12)
--- NOTE | 2018-03-27 21:34 | EKG ---
Test Date: 2018-03-27 Test Time: 15:23:15 [employer]: AUSTYN MEASUREMENT RESULTS: Intervals: Rate: 105 [place]: QRSD: 142 QT: 340 QTc: 449 [place]: P: [place]: QRS: -62 T: 99 INTERPRETIVE STATEMENTS: Atrial fibrillation with rapid ventricular response Left axis deviation Left bundle branch block Abnormal ECG No previous ECG available for comparison Electronically Signed On 03-27-18 21:33:45 CDT by Bunny Marcos
== END 2018-03-27 20:37 ==
LOC: ER 14:58
DX: J15.8 Pneumonia due to other specified bacteria (principal); I12.0 Hypertensive chronic kidney disease with stage 5 chronic kidney disease or end stage renal disease; N18.6 End stage renal disease; E87.5 Hyperkalemia; E83.41 Hypermagnesemia; I25.2 Old myocardial infarction; Z79.82 Long term (current) use of aspirin; Z99.2 Dependence on renal dialysis
CPT/HCPCS: 36415; 71045; 80048; 80076; 83735; 83880; 84484; 85025; 85610; 93005; 96365; 96367; 96368; 96375; 99285; J0456; J0610; J0696